=== PATIENT | male | born 1950 | race Caucasian/White ===

== ENCOUNTER 2020-05-14 19:50 | Inpatient (IN) | payer MEDICARE ==
--- NOTE | 2020-05-14 20:51 | ED ---
General Adult HPI - General Chief complaint: Altered Mental Status Stated complaint: SOB Time Seen by Provider: 05/14/20 19:50 Source: patient, family, RN/MD, EMS, RN notes reviewed Mode of arrival: EMS Limitations: altered mental status - History of Present Illness Initial comments: This is a 69-year-old male with a history of emphysema who apparently is late stage who was have an outpatient surgical procedure done at [facility] today when he is found to be hypoxemic. He was transferred to the emergency department for evaluation. He was found to be short of breath today with updraft treatments and steroids. He was noted to have minimal improvement apparently with the treatments. It pulse ox of 72. There is no procedure was to be a of the left elbow bursitis. He initially had blood work in a bicarb of 32 because the failure treatment the family did request treatment at this hospital. He was transferred to this emergency department. Prior to being discharged from [facility] a venous blood gas was done showed a pH of 7.1 and a pCO2 of 135. Patient was noted to be unresponsive with pinpoint pupils by paramedics he was given Narcan with some response. Upon arrival he was somewhat lethargic but did answer questions. Family was at bedside shortly after arrival we did discuss the possible need for intubation and they discussed with me that he was told everyone ventilator receiving every because of severe lung disease. So at this time there refusing intubation. They have agreed to BiPAP. - Related Data Allergies Allergy/AdvReac Type Severity Reaction Status Date / Time No Known Allergies Allergy Verified 05/14/20 20:11 Review of Systems ROS Statement: Those systems with pertinent positive or pertinent negative responses have been documented in the HPI. ROS Other: All systems not noted in ROS Statement are negative. Past Medical History Past Medical History: COPD History of Any Multi-Drug Resistant Organisms: Unobtainable Past Surgical History: Tonsillectomy Additional Past Surgical History / Comment(s): cataracts Past Psychological History: Unable to Obtain Smoking Status: Former smoker Past Alcohol Use History: Unable to Obtain Past Drug Use History: Unable to Obtain General Exam - General Exam Comments Initial Comments: This is a well-developed asthenic appearing male who is awake alert but lethargic Limitations: altered mental status General appearance: alert, lethargic Head exam: Present: atraumatic, normocephalic, normal inspection Eye exam: Present: normal appearance, PERRL, EOMI. Absent: scleral icterus, conjunctival injection, periorbital swelling ENT exam: Present: mucous membranes dry Neck exam: Present: normal inspection. Absent: tenderness, meningismus, lymphadenopathy Respiratory exam: Present: accessory muscle use, decreased breath sounds, other (Tachypnea). Absent: respiratory distress, wheezes, rales, rhonchi, stridor Cardiovascular Exam: Present: regular rate, normal rhythm, normal heart sounds. Absent: systolic murmur, diastolic murmur, rubs, gallop, clicks GI/Abdominal exam: Present: soft, normal bowel sounds. Absent: distended, tenderness, guarding, rebound, rigid Extremities exam: Present: normal inspection, full ROM, normal capillary refill. Absent: tenderness, pedal edema, joint swelling, calf tenderness Back exam: Present: normal inspection Neurological exam: Present: alert, oriented X3, CN II-XII intact Psychiatric exam: Present: normal affect, normal mood Skin exam: Present: warm, dry, intact, normal color. Absent: rash Course Vital Signs 05/14/20 05/14/20 19:52 20:37 Pulse Rate 96 84 Respiratory 26 H 16 Rate Blood Pressure 106/68 106/68 O2 Sat by Pulse 74 L 92 L Oximetry Medical Decision Making - Medical Decision Making I did review the imaging and report is well as the charting from [facility]. I did discuss the findings with Dr. Mcwilliams as well as coverage for Dr. shelley as not. - Lab Data Result diagrams: 05/14/20 20:41 05/14/20 20:41 Lab Results 05/14/20 05/14/20 05/14/20 Range/Units 20:41 20:41 20:41 WBC 6.5 (3.8-10.6) k/uL RBC 4.87 (4.30-5.90) m/uL Hgb 14.7 (13.0-17.5) gm/dL Hct 48.5 (39.0-53.0) % MCV 99.6 (80.0-100.0) fL MCH 30.2 (25.0-35.0) pg MCHC 30.3 L (31.0-37.0) g/dL RDW 13.8 (11.5-15.5) % Plt Count 249 (150-450) k/uL Neutrophils % 93 % Lymphocytes % 4 % Monocytes % 2 % Eosinophils % 1 % Basophils % 0 % Neutrophils # 6.0 (1.3-7.7) k/uL Lymphocytes # 0.3 L (1.0-4.8) k/uL Monocytes # 0.1 (0-1.0) k/uL Eosinophils # 0.1 (0-0.7) k/uL Basophils # 0.0 (0-0.2) k/uL Hypochromasia Marked Sodium 134 L (137-145) mmol/L Potassium 5.3 H (3.5-5.1) mmol/L Chloride 96 L (98-107) mmol/L Carbon Dioxide 32 H (22-30) mmol/L Anion Gap 6 mmol/L BUN 17 (9-20) mg/dL Creatinine 0.79 (0.66-1.25) mg/dL Est GFR (CKD-EPI)AfAm >90 (>60 ml/min/1.73 sqM) Est GFR (CKD-EPI)NonAf >90 (>60 ml/min/1.73 sqM) Glucose 143 H (74-99) mg/dL Plasma Lactic Acid [place] 1.4 (0.7-2.0) mmol/L Calcium 9.1 (8.4-10.2) mg/dL Magnesium 2.0 (1.6-2.3) mg/dL Total Bilirubin 0.4 (0.2-1.3) mg/dL AST 35 (17-59) U/L ALT 23 (4-49) U/L Alkaline Phosphatase 28 L (38-126) U/L Creatine Kinase 104 (55-170) U/L Total Protein 6.2 L (6.3-8.2) g/dL Albumin 3.5 (3.5-5.0) g/dL Critical Care Time Critical Care Time: Yes Total Critical Care Time: 3,739 Disposition Clinical Impression: Acute exacerbation of emphysema, Acute respiratory distress, Respiratory acidosis Disposition: ADMITTED IP TO THIS [facility] Condition: Serious Referrals: aJmes Kilgore MD [Primary Care Provider] - 1-2 days
[2020-05-14 21:03] LABS: Basophils % (A) 0 %; Eosinophils # (A) 0.1 k/uL (0-0.7); Eosinophils % (A) 1 %; HCT 48.5 % (39.0-53.0); HGB 14.7 gm/dL (13.0-17.5); Hypochromasia Marked; Lymphocytes # (A) 0.3 k/uL (1.0-4.8); Lymphocytes % (A) 4 %; MCH 30.2 pg (25.0-35.0); MCHC 30.3 g/dL (31.0-37.0); MCV 99.6 fL (80.0-100.0); Mean Platelet Volume 7.2; Monocytes # (A) 0.1 k/uL (0-1.0); Monocytes % (A) 2 %; Neutrophils % (A) 93 %; Platelet Count 249 k/uL (150-450); RBC 4.87 m/uL (4.30-5.90); RDW 13.8 % (11.5-15.5); WBC 6.5 k/uL (3.8-10.6)
[2020-05-14 21:12] LABS: ALT 23 U/L (4-49); AST 35 U/L (17-59); African American GFR (CKD) >90 (>60 ml/min/1.73 sqM); Albumin 3.5 g/dL (3.5-5.0); Alkaline Phosphatase 28 U/L (38-126); Anion Gap 6 mmol/L; Blood Urea Nitrogen 17 mg/dL (9-20); Calcium 9.1 mg/dL (8.4-10.2); Carbon Dioxide 32 mmol/L (22-30); Chloride 96 mmol/L (98-107); Creatine Kinase 104 U/L (55-170); Glucose 143 mg/dL (74-99); Non-African American GFR(CKD) >90 (>60 ml/min/1.73 sqM); Potassium 5.3 mmol/L (3.5-5.1); Sodium 134 mmol/L (137-145); Total Bilirubin 0.4 mg/dL (0.2-1.3); Total Protein 6.2 g/dL (6.3-8.2)
[2020-05-14] MEDS ORDERED: MAGNESIUM SULFATE-D5W PMX 1 GM in DEXTROSE/WATER 1 100ML.BAG IVPB ONE (21:26)
[2020-05-14] MEDS: SODIUM CHLORIDE 0.9% 1,000 ML IV SCH (21:47)
[2020-05-14 23:22] LABS: Glucose,Whole Blood 129 mg/dL (75-99)
[2020-05-14 23:49] LABS: Appearance,Urine Clear (Clear); Bilirubin,Urine Negative (Negative); Blood,Urine Negative (Negative); Color,Urine Yellow; Glucose,Urine (UA) Negative (Negative); Ketones,Urine Negative (Negative); Leukocyte Esterase,Urine Negative (Negative); Nitrite,Urine Negative (Negative); PH, Urine 5.5 (5.0-8.0); Protein,Urine Negative (Negative); Specific Gravity,Urine 1.024 (1.001-1.035); Urobilinogen,Urine <2.0 mg/dL (<2.0)
[2020-05-15] MEDS: IPRATROPIUM-ALBUTEROL 3 ML NEB INHALATION SCH ×7 (00:04→23:56)
[2020-05-15] MEDS: methylPREDNISolone SOD SUCCI 125 MG/2 ML VIAL IV SCH ×5 (01:00→23:31)
[2020-05-15 05:04] LABS: African American GFR (CKD) >90 (>60 ml/min/1.73 sqM); Anion Gap 5 mmol/L; Blood Urea Nitrogen 19 mg/dL (9-20); Calcium 8.9 mg/dL (8.4-10.2); Carbon Dioxide 33 mmol/L (22-30); Chloride 97 mmol/L (98-107); Glucose 148 mg/dL (74-99); Non-African American GFR(CKD) >90 (>60 ml/min/1.73 sqM); Potassium 5.4 mmol/L (3.5-5.1); Sodium 135 mmol/L (137-145)
[2020-05-15 05:11] LABS: Basophils % (A) 0 %; Eosinophils % (A) 0 %; HCT 48.1 % (39.0-53.0); HGB 14.6 gm/dL (13.0-17.5); Hypochromasia Marked; Lymphocytes # (A) 0.3 k/uL (1.0-4.8); Lymphocytes % (A) 4 %; MCH 30.1 pg (25.0-35.0); MCHC 30.3 g/dL (31.0-37.0); MCV 99.5 fL (80.0-100.0); Mean Platelet Volume 7.6; Monocytes # (A) 0.1 k/uL (0-1.0); Monocytes % (A) 2 %; Neutrophils # (A) 5.5 k/uL (1.3-7.7); Neutrophils % (A) 93 %; Platelet Count 258 k/uL (150-450); RBC 4.83 m/uL (4.30-5.90); WBC 5.9 k/uL (3.8-10.6)
[2020-05-15] MEDS: SODIUM CHLORIDE 0.9% 1,000 ML IV SCH ×2 (06:45→15:02)
--- NOTE | 2020-05-15 08:58 | XR ---
EXAMINATION TYPE: XR chest 1V portable DATE OF EXAM: 05/15/2020 CLINICAL HISTORY: Shortness of breath. COPD. TECHNIQUE: Semiupright portable view of the chest COMPARISON: Outside institution 05/14/2020 chest radiograph FINDINGS: The lungs are hyperexpanded with interstitial coarsening and flattening of the hemidiaphra gms. The cardiomediastinal silhouette is within normal limits for size. Pulmonary vasculature is norm al. There is no focal air space opacity, pleural effusion, or pneumothorax seen. The osseous structur es are intact. IMPRESSION: Emphysematous changes. No acute cardiopulmonary process.
[2020-05-15] MEDS: HEPARIN SODIUM,PORCINE 5,000 UNIT/ML 1 ML VIAL SQ SCH ×3 (10:09→23:29)
[2020-05-15 11:09] LABS: ABG Base Excess 8.5 mmol/L; ABG HCO3 36 mmol/L (21-25); ABG Oxygen Saturation 96.1 % (94-97); ABG PH 7.25 (7.35-7.45); ABG PO2 87 mmHg (83-108); ABG TCO2 38 mmol/L (19-24); Allen Test Performed? Yes
[2020-05-15 11:12] LABS: ABG PCO2 82 mmHg (35-45)
--- NOTE | 2020-05-15 12:10 | P.CNPUL ---
History of Present Illness Consult date: 05/15/20 Reason for consult: dyspnea, COPD History of present illness: 69-year-old male patient, a patient of Dr. James Kilgore, a chronic smoker used to smoke up to 3 pack of cigarettes they'll quit smoking a few months back, was at [facility] where he was admitted to undergo bilateral elbow surgery for drainage of bursitis. The patient was found to be hypoxic preoperatively and the pulse ox was in the mid 70s. At that point, the patient had a venous blood gas that showed a pH of 7.1 with a pCO2 135. A CT angiogram of the chest was done and the patient got transferred to [facility] emergency department for further care. In the ED, the patient was quite lethargic and somnolent any CO2 narcosis. Intubation was discussed with the patient's family and there was completed refuses knowing that he has advanced lung disease and/or very much concerned that he may not recover from it. Based on that, the patient was placed on a BiPAP at a pressure of 12/5 cm of water and FiO2 of 35%. Overnight the patient stated on BiPAP and earlier this morning I saw the patient, the BiPAP and put him on oxygen at 3 L per minute nasal cannula. Blood gases was done in the ICU and the patient's pH was at 7.25 with a pCO2 of 82 and pO2 of 87 and this was on 3 L of oxygen by nasal cannula. The patient is currently awake and alert. Following commands and answering questions. Mr. exertional dyspnea and he typically gets short of breath upon walking a block. He gets short of breath upon performing activities of daily today life. no worsening of his chronic cough. No significant sputum production. No chest pain. No pleurisy. No heart failure. No edema in lower extremities. No nausea. No vomiting. No aspiration. No recurrent pneumonias. Utilizes Advair Diskus and he has albuterol nebulized she was around the clock. He does not have oxygen at home. He lives with his family. No headache. No focal neurological deficits. Serum bicarbs at 33 and this indicates chronic hypercapnic respiratory failure. Review of Systems Constitutional: Reports daytime sleepiness, Reports lethargy Eyes: denies as per HPI, denies blurred vision, denies bulging eye, denies decreased vision, denies diplopia, denies discharge, denies dry eye, denies irr itation, denies itching, denies pain, denies photophobia, denies loss of peripheral vision, denies loss of vision, denies tunnel vision/blind spots Ears: deny: decreased hearing, ear discharge, earache, tinnitus Ears, nose, mouth and throat: Reports as per HPI Breasts: absent: as per HPI, gynecomastia Cardiovascular: Reports decreased exercise tolerance, Reports dyspnea on exertion Respiratory: Reports dyspnea, Reports wheezing Gastrointestinal: Reports as per HPI Genitourinary: Reports as per HPI, Reports hematuria Musculoskeletal: absent: ankle pain, ankle stiffness, ankle swelling Neurological: Reports as per HPI Psychiatric: Reports as per HPI Endocrine: Reports as per HPI, Reports fatigue Hematologic/Lymphatic: Reports as per HPI Allergic/Immunologic: Reports as per HPI 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), COPD, smoker History of Any Multi-Drug Resistant Organisms: Unobtainable Past Surgical History: Tonsillectomy Additional Past Surgical History / Comment(s): cataracts Past Anesthesia/Blood Transfusion Reactions: No Reported Reaction Past Psychological History: Unable to Obtain Smoking Status: Former smoker (quit smoking 5 months, and hen used to smoke 3 PPD ffor 50 year, 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) Past Alcohol Use History: Unable to Obtain Past Drug Use History: Unable to Obtain Medications and Allergies Allergies Allergy/AdvReac Type Severity Reaction Status Date / Time No Known Allergies Allergy Verified 05/14/20 22:09 Physical Exam Vitals: Vital Signs Temp Pulse Resp BP Pulse Ox 05/15/20 09:00 97.7 F 78 19 90/62 94 L 05/15/20 08:07 77 05/15/20 08:00 76 14 95/58 96 05/15/20 07:55 79 95 05/15/20 07:00 78 17 110/67 92 L 05/15/20 06:00 80 20 107/71 94 L 05/15/20 05:00 82 21 112/72 94 L 05/15/20 04:27 81 05/15/20 04:06 81 05/15/20 04:00 97.8 F 65 17 105/71 94 L 05/15/20 03:00 75 17 106/69 93 L 05/15/20 02:00 76 17 97/67 93 L 05/15/20 01:30 65 12 97/67 93 L 05/15/20 01:00 76 14 91/64 90 L 05/15/20 00:30 77 15 91/64 94 L 05/15/20 00:07 95 05/15/20 00:00 72 17 95 05/14/20 23:30 96.8 F L 76 13 113/70 95 05/14/20 22:26 20 96 05/14/20 21:51 97.5 F L 05/14/20 20:37 84 16 106/68 92 L 05/14/20 19:52 96 26 H 106/68 74 L Intake and Output 05/14/20 05/15/20 05/15/20 22:59 06:59 14:59 Intake Total 1040 390 Output Total 1000 197 Balance 40 193 Intake: IV 1040 390 Sodium Chloride 0.9% 1, 1040 390 000 ml @ 130 mls/hr IV . Q7H42M [facility] Rx#:[id number] Output: Urine 1000 197 Other: Voiding Method Indwelling Catheter Indwelling Catheter # Voids 0 Weight 66.8 kg 65.6 kg Gen. appearance thin and frail nonacute distress for distress currently on 3 L about 2 by nasal cannula. Not using excessive muscle breathing. BMI 20.8 Head exam was generally normal. There was no scleral icterus or corneal arcus. Mucous membranes were moist. Neck was supple and without jugular venous distension, thyromegaly, or carotid bruits. Carotids were easily palpable bilaterally. There was no adenopathy. Lungs sounds are diminished bilaterally and the patient has marked diminished breath sounds on the left is along with pronation of the exhalation phase of breathing and the patient has exhalation wheezing. Cardiac exam revealed the PMI to be normally situated and sized. The rhythm was regular and no extrasystoles were noted during several minutes of auscultation. The first and second heart sounds were normal and physiologic splitting of the second heart sound was noted. There were no murmurs, rubs, clicks, or gallops. Abdominal exam revealed normal bowel sounds. The abdomen was soft, non-tender, and without masses, organomegaly, or appreciable enlargement of the abdominal aorta. Examination of the extremities revealed easily palpable radial, femoral and pedal pulses. There was no cyanosis, clubbing or edema. Examination of the skin revealed no evidence of significant rashes, suspicious appearing nevi or other concerning lesions. Neurologically arousable and the patient is following commands and answering appropriately. Results - Laboratory Findings CBC and BMP: 05/15/20 04:38 05/15/20 04:38 Abnormal lab findings: Abnormal Labs 05/14/20 05/14/20 05/14/20 20:41 20:41 23:21 MCHC 30.3 L Lymphocytes # 0.3 L Sodium 134 L Potassium 5.3 H Chloride 96 L Carbon Dioxide 32 H Glucose 143 H POC Glucose (mg/dL) 129 H Alkaline Phosphatase 28 L Total Protein 6.2 L 05/15/20 05/15/20 04:38 04:38 MCHC 30.3 L Lymphocytes # 0.3 L Sodium 135 L Potassium 5.4 H Chloride 97 L Carbon Dioxide 33 H Glucose 148 H POC Glucose (mg/dL) Alkaline Phosphatase Total Protein - Diagnostic Findings Chest x-ray: image reviewed Assessment and Plan Plan: 1 acute COPD exacerbation 2 advanced COPD with chronic hypoxic and hypercapnic the respiratory failure. Based on his blood gases the patient obviously has a component of chronic hypercapnic respiratory failure with secondary metabolic alkalosis. He obviously is chronically hypoxic also. He denies having to use home oxygen. CT angiogram was done at [facility]. The results are not available to me. Chest x-ray is not showing any acute cardio pulmonary process. The patient was placed on BiPAP throughout the night. 3 acute on chronic hypercapnic respiratory failure currently on BiPAP overnight and the patient was switched to oxygen by nasal cannula with subsequent improvement and acid base status 4 chronic hypoxic respiratory failure 5 cachexia with a BMI of 20.8 6 previous history of melanoma resected 7 previous history of smoking Plan This patient has advanced lung disease with significant limitation of exercise capacity. The patient also came in for an acute on top of chronic hypoxic and hypercapnic respiratory failure, support with BiPAP and bronchodilators and steroids. Subsequently low blood gases are showing improvement and acid base status. Would like to obtain these results of the CT angiogram that was done at [facility]. Continue bronchodilators. Continue steroids. Alternates BiPAP along with oxygen 3 L per minute nasal cannula. Heparin subcu for DVT prophylaxis. We'll continue to follow.
[2020-05-15] MEDS ORDERED: ACETAMINOPHEN TAB 325 MG TAB PO PRN (14:53)
[2020-05-15] MEDS ORDERED: IBUPROFEN 400 MG TAB PO PRN (16:59)
--- NOTE | 2020-05-15 17:26 | P.HPIM ---
History of Present Illness H&P Date: 05/15/20 Chief Complaint: Acute hypoxic hypercapnic respiratory failure is a 69-year-old male with a past medical history of end-stage COPD, melanoma of the left eye transferred from [facility] for acute hypoxic hypercapnic respiratory failure. Patient was admitted at [facility] for bilateral bursectomy where he was found to be hypoxic as his pulse ox was showing saturations of 70-74%, so they did CT angiogram of the chest and transferred to [facility]. In the emergency department patient was lethargic, but intubation was not done as the patient's family members refused knowing that he has advanced COPD as it would be very difficult for him to get off of the ventilator. So the patient was started on BiPAP and admitted to the ICU. Patient is currently in the ICU setting saturating at 90% on 3 L of nasal cannula. Patient states that he did not have any fevers chills or rigors. He denied having any chest pain or difficulty in breathing. No cough or sputum production or change in the color of his sputum. Patient denied having an apparent pain nausea vomiting or diarrhea. No dysuria or hematuria. He states that he was in his usual health rate and he went to get bursectomy done. At the time of admission patient's oxygen saturation was at 74% on an as his cannula and immediately after the getting him on BiPAP dependent up to 92%. On reviewing his labs his white count of 5.9, hemoglobin 14.6, platelets of 258. Sodium 135, potassium 5.4, chloride 97, bicarbonate 39. BP 1 of 19 and creatinine of 0.69. Patient does state stated negative for influenza A and B. His urine analysis was negative for nitrites and leukocyte esterase. Review of Systems REVIEW OF SYSTEMS: PSYCH: No anxiety or depression NEURO:No c/o weakness of the extremties, No facial droop, No speech a bnormalities. VASCULAR: Peripheral nervous system within the normal limits no edema HEMATOLOGIC: No history of easy bleeding and bruising . No recent infections . RESPIRATORY: As per HPI IMMUNE: No infections INTEGUMENT: no rashes OPHTHALMOLOGIC: No blurry vision and no eye discharge : No dysuria or hematuria CARDIAC: No chest pain , shortness of breath , paroxysmal nocturnal dyspnea MUSCULOSKELETAL : No Aches or pains in the joints or muscles. GI: No abdominal pain, Nausea or vomiting. No constipation or diarrhea. 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) Past Alcohol Use History: Unable to Obtain Past Drug Use History: Unable to Obtain Medications and Allergies Home Medications Medication Instructions Recorded Confirmed Type Aspirin [Adult Low Dose Aspirin EC] 81 mg PO DAILY 05/15/20 05/15/20 History Fluticasone/Salmeterol [Advair 1 puff INHALATION RT-BID 05/15/20 05/15/20 History 250-50 Diskus] Ipratropium-Albuterol Nebulize 3 ml INHALATION RT-Q4H PRN 05/15/20 05/15/20 History [Duoneb 0.5 mg-3 mg/3 ml Soln] Tamsulosin [Flomax] 0.4 mg PO DAILY 05/15/20 05/15/20 History Allergies Allergy/AdvReac Type Severity Reaction Status Date / Time No Known Allergies Allergy Verified 05/15/20 12:12 Physical Exam Vitals: Vital Signs Temp Pulse Resp BP Pulse Ox 05/15/20 17:00 98 15 105/71 90 L 05/15/20 16:00 97.7 F 95 0 L 93/53 93 L 05/15/20 15:55 90 22 05/15/20 15:45 91 22 05/15/20 15:00 94 17 98/62 92 L 05/15/20 14:00 86 14 105/64 91 L 05/15/20 13:00 80 8 L 100/63 88 L 05/15/20 12:00 97.6 F 78 17 98/62 93 L 05/15/20 11:46 74 05/15/20 11:31 73 05/15/20 11:00 79 17 102/63 97 05/15/20 10:00 78 17 100/63 96 05/15/20 09:00 97.7 F 78 19 90/62 94 L 05/15/20 08:07 77 05/15/20 08:00 76 14 95/58 96 05/15/20 07:55 79 95 05/15/20 07:00 78 17 110/67 92 L 05/15/20 06:00 80 20 107/71 94 L 05/15/20 05:00 82 21 112/72 94 L 05/15/20 04:27 81 05/15/20 04:06 81 05/15/20 04:00 97.8 F 65 17 105/71 94 L 05/15/20 03:00 75 17 106/69 93 L 05/15/20 02:00 76 17 97/67 93 L 05/15/20 01:30 65 12 97/67 93 L 05/15/20 01:00 76 14 91/64 90 L 05/15/20 00:30 77 15 91/64 94 L 05/15/20 00:07 95 05/15/20 00:00 72 17 95 05/14/20 23:30 96.8 F L 76 13 113/70 95 05/14/20 22:26 20 96 05/14/20 21:51 97.5 F L 05/14/20 20:37 84 16 106/68 92 L 05/14/20 19:52 96 26 H 106/68 74 L Intake and Output 05/15/20 05/15/20 05/15/20 06:59 14:59 22:59 Intake Total 1040 590 120 Output Total 1000 542 130 Balance 40 48 -10 Intake: IV 1040 590 120 Sodium Chloride 0.9% 1, 1040 590 120 000 ml @ 40 mls/hr IV . Q24H [facility] Rx#:[id number] Output: Urine 1000 542 130 Other: Voiding Method Indwelling Catheter Indwelling Catheter Indwelling Catheter # Voids 0 Weight 65.6 kg Physical EXAM GEN. APPEARANCE: alert, in no apparent distress, cachectic. HEAD EXAM: atraumatic, normocephalic, normal inspection EYE EXAM: No pallor. No icterus. ENT EXAM: normal exam, mucous membranes moist NECK EXAM: No JVD. RESPIRATORY EXAM: Diminished breath sounds in all lung weaver. Bilateral rhonchi. CARDIOVASCULAR EXAM: S1-S2 heard. GI/ABDOMINAL EXAM: soft, normal bowel sounds. Absent: distended, tenderness, guarding, rebound, rigid EXTREMITIES EXAM: No edema. NEUROLOGICAL EXAM: alert, oriented X3, no focal neurological deficits PSYCHIATRIC EXAM: normal affect, normal mood SKIN EXAM: warm, dry, intact, normal color. Absent: rash Results CBC & Chem 7: 05/16/20 04:40 05/16/20 04:40 Labs: Abnormal Lab Results - Last 24 Hours (Table) 05/14/20 05/14/20 05/14/20 Range/Units 20:41 20:41 23:21 MCHC 30.3 L (31.0-37.0) g/dL Lymphocytes # 0.3 L (1.0-4.8) k/uL ABG pH (7.35-7.45) ABG pCO2 (35-45) mmHg ABG HCO3 (21-25) mmol/L ABG Total CO2 (19-24) mmol/L Sodium 134 L (137-145) mmol/L Potassium 5.3 H (3.5-5.1) mmol/L Chloride 96 L (98-107) mmol/L Carbon Dioxide 32 H (22-30) mmol/L Glucose 143 H (74-99) mg/dL POC Glucose (mg/dL) 129 H (75-99) mg/dL Alkaline Phosphatase 28 L (38-126) U/L Total Protein 6.2 L (6.3-8.2) g/dL 05/15/20 05/15/20 05/15/20 Range/Units 04:38 04:38 11:07 MCHC 30.3 L (31.0-37.0) g/dL Lymphocytes # 0.3 L (1.0-4.8) k/uL ABG pH 7.25 L (7.35-7.45) ABG pCO2 82 H* (35-45) mmHg ABG HCO3 36 H (21-25) mmol/L ABG Total CO2 38 H (19-24) mmol/L Sodium 135 L (137-145) mmol/L Potassium 5.4 H (3.5-5.1) mmol/L Chloride 97 L (98-107) mmol/L Carbon Dioxide 33 H (22-30) mmol/L Glucose 148 H (74-99) mg/dL POC Glucose (mg/dL) (75-99) mg/dL Alkaline Phosphatase (38-126) U/L Total Protein (6.3-8.2) g/dL Thrombosis Risk Factor Assmnt - Choose All That Apply Each Factor Represents 1 point: Abnormal pulmonary function (COPD) Each Risk Factor Represents 2 Points: Age 61-74 years Thrombosis Risk Factor Assessment Total Risk Factor Score: 3 Thrombosis Risk Factor Assessment Level: Moderate Risk Assessment and Plan Assessment: ASSESSMENT Acute hypoxic hypercapnic respiratory failure Acute COPD exacerbation Chronic hypoxemic respiratory failure Severe protein calorie malnutrition History of melanoma status post resection PLAN: Patient has been started on BiPAP and his oxygen saturations have improved. He is currently saturating at 90% on 3 L of nasal cannula. To follow up on the CT angino of the chest that was done at the [facility]. Continue with IV steroids, antibiotics and breathing treatments. Continue with the current medication regimen and further recommendations to follow depending on the progress of the patient. Overall prognosis is guarded.
[2020-05-16] MEDS: IPRATROPIUM-ALBUTEROL 3 ML NEB INHALATION SCH ×6 (04:06→23:25)
[2020-05-16 05:24] LABS: Basophils % (A) 0 %; Eosinophils % (A) 0 %; HGB 13.4 gm/dL (13.0-17.5); Hypochromasia Moderate; Lymphocytes # (A) 0.3 k/uL (1.0-4.8); Lymphocytes % (A) 3 %; MCH 29.9 pg (25.0-35.0); MCHC 30.4 g/dL (31.0-37.0); MCV 98.5 fL (80.0-100.0); Mean Platelet Volume 7.7; Monocytes # (A) 0.6 k/uL (0-1.0); Monocytes % (A) 5 %; Neutrophils # (A) 10.9 k/uL (1.3-7.7); Neutrophils % (A) 92 %; Platelet Count 257 k/uL (150-450); RBC 4.47 m/uL (4.30-5.90); RDW 13.9 % (11.5-15.5); WBC 11.9 k/uL (3.8-10.6)
[2020-05-16] MEDS: methylPREDNISolone SOD SUCCI 125 MG/2 ML VIAL IV SCH ×4 (05:27→23:52)
[2020-05-16 05:36] LABS: African American GFR (CKD) >90 (>60 ml/min/1.73 sqM); Anion Gap 2 mmol/L; Blood Urea Nitrogen 26 mg/dL (9-20); Calcium 8.9 mg/dL (8.4-10.2); Carbon Dioxide 34 mmol/L (22-30); Chloride 99 mmol/L (98-107); Glucose 174 mg/dL (74-99); Non-African American GFR(CKD) >90 (>60 ml/min/1.73 sqM); Potassium 4.8 mmol/L (3.5-5.1); Sodium 135 mmol/L (137-145)
--- NOTE | 2020-05-16 06:34 | XR ---
EXAMINATION TYPE: XR chest 1V portable DATE OF EXAM: 05/16/2020 COMPARISON: 05/15/2020 HISTORY: Shortness of breath TECHNIQUE: Single frontal view of the chest is obtained. FINDINGS: Hyperinflation suggests COPD. There is areas of bilateral consolidation and small left eff usion. Interstitium is increased. No pneumothorax. Heart size mildly prominent with atherosclerotic c hange aorta. IMPRESSION: 1. COPD with bilateral infiltrate and small left effusion correlate for superimposed CHF or pneumonia .. Findings progressed from prior exam.
[2020-05-16] MEDS: HEPARIN SODIUM,PORCINE 5,000 UNIT/ML 1 ML VIAL SQ SCH ×3 (08:36→23:50)
[2020-05-16 09:59] LABS: ABG Base Excess 11.4 mmol/L; ABG HCO3 36 mmol/L (21-25); ABG Oxygen Saturation 93.9 % (94-97); ABG PCO2 52 mmHg (35-45); ABG PH 7.44 (7.35-7.45); ABG PO2 63 mmHg (83-108); ABG TCO2 37 mmol/L (19-24); Allen Test Performed? Yes
[2020-05-16] MEDS: AZITHROMYCIN 250 MG TAB PO SCH (10:23)
--- NOTE | 2020-05-16 11:11 | P.PN ---
Subjective Progress Note Date: 05/16/20 69-year-old male patient, a patient of Dr. James Kilgore, a chronic smoker used to smoke up to 3 pack of cigarettes they'll quit smoking a few months back, was at [facility] where he was admitted to undergo bilateral elbow surgery for drainage of bursitis. The patient was found to be hypoxic preoperatively and the pulse ox was in the mid 70s. At that point, the patient had a venous blood gas that showed a pH of 7.1 with a pCO2 135. A CT angiogram of the chest was done and the patient got transferred to [facility] emergency department for further care. In the ED, the patient was quite lethargic and somnolent any CO2 narcosis. Intubation was discussed with the patient's family and there was completed refuses knowing that he has advanced lung disease and/or very much concerned that he may not recover from it. Based on that, the patient was placed on a BiPAP at a pressure of 12/5 cm of water and FiO2 of 35%. Overnight the patient stated on BiPAP and earlier this morning I saw the patient, the BiPAP and put him on oxygen at 3 L per minute nasal cannula. Blood gases was done in the ICU and the patient's pH was at 7.25 with a pCO2 of 82 and pO2 of 87 and this was on 3 L of oxygen by nasal cannula. The patient is currently awake and alert. Following commands and answering questions. Mr. exertional dyspnea and he typically gets short of breath upon w alking a block. He gets short of breath upon performing activities of daily today life. no worsening of his chronic cough. No significant sputum production. No chest pain. No pleurisy. No heart failure. No edema in lower extremities. No nausea. No vomiting. No aspiration. No recurrent pneumonias. Utilizes Advair Diskus and he has albuterol nebulized she was around the clock. He does not have oxygen at home. He lives with his family. No headache. No focal neurological deficits. Serum bicarbs at 33 and this indicates chronic hypercapnic respiratory failure. On 05/16/2020 the patient is being seen for a follow-up. Doing extremely well. Less short of breath compared to yesterday. Repeat blood gases from today showed improvement and acid base status with a pH of 7.44 with pCO2 of 52 and pO2 of 63. His was done on 3 L about 2 by nasal cannula. The patient will need home oxygen. The chest x-ray showing some infiltrates of the lung bases. The patient will need some empiric antibiotics and going to start the patient on Zithromax to 50 mg by mouth daily. Home oxygen arrangements are being done. No altered mentation. Limited coffee no significant sputum production. No chest pain. He can be leaving the ICU today. Objective - Vital Signs Vital signs: Vital Signs Temp 97.9 F 05/16/20 08:00 Pulse 81 05/16/20 10:00 Resp 19 05/16/20 10:00 BP 117/73 05/16/20 10:00 Pulse Ox 92 L 05/16/20 10:00 Intake & Output 05/15/20 05/16/20 05/16/20 18:59 06:59 18:59 Intake Total 750 480 380 Output Total 712 660 90 Balance 38 -180 290 Weight 66.2 kg Intake: IV 750 480 130 Sodium Chloride 0.9% 1, 750 480 130 000 ml @ 10 mls/hr IV . Q24H [facility] Rx#:[id number] Oral 250 Output: Urine 712 660 90 Other: Voiding Method Indwelling Catheter Indwelling Catheter Urinal - Exam Gen. appearance thin and frail nonacute distress for distress currently on 3 L by nasal cannula. Not using excessive muscle breathing. BMI 20.8 Head exam was generally normal. There was no scleral icterus or corneal arcus. Mucous membranes were moist. Neck was supple and without jugular venous distension, thyromegaly, or carotid bruits. Carotids were easily palpable bilaterally. There was no adenopathy. Lungs sounds are diminished bilaterally and the patient has marked diminished breath sounds on the left is along with pronation of the exhalation phase of breathing and the patient has exhalation wheezing. Cardiac exam revealed the PMI to be normally situated and sized. The rhythm was regular and no extrasystoles were noted during several minutes of auscultation. The first and second heart sounds were normal and physiologic splitting of the second heart sound was noted. There were no murmurs, rubs, clicks, or gallops. Abdominal exam revealed normal bowel sounds. The abdomen was soft, non-tender, and without masses, organomegaly, or appreciable enlargement of the abdominal aorta. Examination of the extremities revealed easily palpable radial, femoral and pedal pulses. There was no cyanosis, clubbing or edema. Examination of the skin revealed no evidence of significant rashes, suspicious appearing nevi or other concerning lesions. Neurologically arousable and the patient is following commands and answering appropriately. - Labs CBC & Chem 7: 05/16/20 04:40 05/16/20 04:40 Labs: Abnormal Lab Results - Last 24 Hours (Table) 05/15/20 05/16/20 05/16/20 Range/Units 11:07 04:40 04:40 WBC 11.9 H (3.8-10.6) k/uL MCHC 30.4 L (31.0-37.0) g/dL Neutrophils # 10.9 H (1.3-7.7) k/uL Lymphocytes # 0.3 L (1.0-4.8) k/uL ABG pH 7.25 L (7.35-7.45) ABG pCO2 82 H* (35-45) mmHg ABG pO2 (83-108) mmHg ABG HCO3 36 H (21-25) mmol/L ABG Total CO2 38 H (19-24) mmol/L ABG O2 Saturation (94-97) % Sodium 135 L (137-145) mmol/L Carbon Dioxide 34 H (22-30) mmol/L BUN 26 H (9-20) mg/dL Glucose 174 H (74-99) mg/dL 05/16/20 Range/Units 09:57 WBC (3.8-10.6) k/uL MCHC (31.0-37.0) g/dL Neutrophils # (1.3-7.7) k/uL Lymphocytes # (1.0-4.8) k/uL ABG pH (7.35-7.45) ABG pCO2 52 H (35-45) mmHg ABG pO2 63 L (83-108) mmHg ABG HCO3 36 H (21-25) mmol/L ABG Total CO2 37 H (19-24) mmol/L ABG O2 Saturation 93.9 L (94-97) % Sodium (137-145) mmol/L Carbon Dioxide (22-30) mmol/L BUN (9-20) mg/dL Glucose (74-99) mg/dL Assessment and Plan Plan: 1 acute COPD exacerbation, improving 2 advanced COPD with chronic hypoxic and hypercapnic the respiratory failure. Based on his blood gases the patient obviously has a component of chronic hypercapnic respiratory failure with secondary metabolic alkalosis. He obviously is chronically hypoxic also. He denies having to use home oxygen. CT angiogram was done at [facility]. No evidence of any pulmonary embolism. No evidence of pneumonia. Will need home oxygen. 3 acute on chronic hypercapnic respiratory failure, improving and the patient has not utilized BiPAP currently on 2 L about 2 by nasal cannula and subsequent improvement and acid base status. 4 chronic hypoxic respiratory failure 5 cachexia with a BMI of 20.8 6 previous history of melanoma resected 7 previous history of smoking Plan Continue bronchodilators and steroids Arrange home oxygen Zithromax to 50 mg by mouth daily was added IV fluids to KVO Increased level of activity as tolerated Transfer out of the ICU
[2020-05-16] MEDS: SODIUM CHLORIDE 0.9% 1,000 ML IV SCH (15:54)
--- NOTE | 2020-05-16 16:08 | P.PN ---
Subjective Progress Note Date: 05/16/20 is a 69-year-old male with a past medical history of end-stage COPD, melanoma of the left eye transferred from [facility] for acute hypoxic hypercapnic respiratory failure. Patient was admitted at [facility] for bilateral bursectomy where he was found to be hypoxic as his pulse ox was showing saturations of 70-74%, so they did CT angiogram of the chest and transferred to [facility]. In the emergency department patient was lethargic, but intubation was not done as the patient's family members refused knowing that he has advanced COPD as it would be very difficult for him to get off of the ventilator. So the patient was started on BiPAP and admitted to the ICU. on 05/15/20- Patient is currently in the ICU setting saturating at 90% on 3 L of nasal cannula. Patient states that he did not have any fevers chills or rigors. He denied having any chest pain or difficulty in breathing. No cough or sputum production or change in the color of his sputum. Patient denied having an apparent pain nausea vomiting or diarrhea. No dysuria or hematuria. He states that he was in his usual health rate and he went to get bursectomy done. At the time of admission patient's oxygen saturation was at 74% on an as his cannula and immediately after the getting him on BiPAP dependent up to 92%. On reviewing his labs his white count of 5.9, hemoglobin 14.6, platelets of 258. Sodium 135, potassium 5.4, chloride 97, bicarbonate 39. BP 1 of 19 and creatinine of 0.69. Patient does state stated negative for influenza A and B. His urine analysis was negative for nitrites and leukocyte esterase. On 05/16/2020- patient is currently in the ICU. As per nursing staff report patient did not require BiPAP in the past 24 hours. He has been saturating around 90% on 3 L of oxygen. Patient states that his difficulty in breathing is much better compared to couple of days back. Patient denies having any chest pain or palpitations. No abdominal pain nausea vomiting or diarrhea. No dysuria or hematuria. He was asking me when he could go home. Patient had ABGs done this morning showing pH of 7.44, [id number] 52, pO2 of 63 on 3 L of oxygen via nasal cannula. On reviewing his labs white count of 11.9 hemoglobin of 13.4, platelets 257. Sodium 135, potassium 4.8, chloride 99, bicarb of 34. Creatinine of 0.73. Active Medications Acetaminophen (Acetaminophen Tab 325 Mg Tab) 650 mg PO Q6HR PRN PRN Reason: Fever and/ or Pain Last Admin: 05/15/20 15:00 Dose: 650 mg Documented by: Albuterol/Ipratropium (Ipratropium-Albuterol 3 Ml Neb) 3 ml INHALATION RT-Q4H [facility] Last Admin: 05/16/20 15:27 Dose: 3 ml Documented by: Azithromycin (Azithromycin 250 Mg Tab) 250 mg PO DAILY [facility] Last Admin: 05/16/20 10:23 Dose: 250 mg Documented by: Heparin Sodium (Porcine) (Heparin Sodium,Porcine 5,000 Unit/Ml 1 Ml Vial) 5,000 unit SQ Q8HR [facility] Last Admin: 05/16/20 15:55 Dose: 5,000 unit Documented by: Sodium Chloride (Saline 0.9%) 1,000 mls @ 10 mls/hr IV .Q24H [facility] Last Admin: 05/16/20 15:54 Dose: 10 mls/hr Documented by: Ibuprofen (Ibuprofen 400 Mg Tab) 400 mg PO Q6HR PRN PRN Reason: Pain Last Admin: 05/15/20 17:18 Dose: 400 mg Documented by: Methylprednisolone Sodium Succinate (Methylprednisolone Sod Succi 125 Mg/2 Ml Vial) 60 mg IV Q6HR [facility] Last Admin: 05/16/20 11:49 Dose: 60 mg Documented by: Objective - Vital Signs Vital signs: Vital Signs Temp 97.9 F 05/16/20 08:00 Pulse 92 05/16/20 15:37 Resp 18 05/16/20 15:37 BP 140/86 05/16/20 15:00 Pulse Ox 95 05/16/20 15:27 Intake & Output 05/15/20 05/16/20 05/16/20 18:59 06:59 18:59 Intake Total 750 480 430 Output Total 712 660 215 Balance 38 -180 215 Weight 66.2 kg Intake: IV 750 480 180 Sodium Chloride 0.9% 1, 750 480 180 000 ml @ 10 mls/hr IV . Q24H [facility] Rx#:[id number] Oral 250 Output: Urine 712 660 215 Other: Voiding Method Indwelling Catheter Indwelling Catheter Urinal # Bowel Movements 1 - Exam PHYSICAL EXAM GEN. APPEARANCE: alert, in no apparent distress, cachectic. HEENT: No pallor, no icterus, no JVD RESPIRATORY EXAM: Diminished breath sounds in all lung weaver. CARDIOVASCULAR EXAM: S1-S2 heard. GI/ABDOMINAL EXAM: soft, normal bowel sounds. Absent: distended, tenderness, guarding, rebound, rigid EXTREMITIES EXAM: No edema. NEUROLOGICAL EXAM: alert, oriented X3, no focal neurological deficits PSYCHIATRIC EXAM: normal affect, normal mood SKIN EXAM: warm, dry, intact, normal color. Absent: rash - Labs CBC & Chem 7: 05/16/20 04:40 05/16/20 04:40 Labs: Abnormal Lab Results - Last 24 Hours (Table) 05/16/20 05/16/20 05/16/20 Range/Units 04:40 04:40 09:57 WBC 11.9 H (3.8-10.6) k/uL MCHC 30.4 L (31.0-37.0) g/dL Neutrophils # 10.9 H (1.3-7.7) k/uL Lymphocytes # 0.3 L (1.0-4.8) k/uL ABG pCO2 52 H (35-45) mmHg ABG pO2 63 L (83-108) mmHg ABG HCO3 36 H (21-25) mmol/L ABG Total CO2 37 H (19-24) mmol/L ABG O2 Saturation 93.9 L (94-97) % Sodium 135 L (137-145) mmol/L Carbon Dioxide 34 H (22-30) mmol/L BUN 26 H (9-20) mg/dL Glucose 174 H (74-99) mg/dL Assessment and Plan Assessment: ASSESSMENT Acute hypoxic hypercapnic respiratory failure Acute COPD exacerbation Chronic hypoxemic respiratory failure Severe protein calorie malnutrition History of melanoma status post resection PLAN: Patient has been started on BiPAP and his oxygen saturations have improved. He is currently saturating at 90% on 3 L of nasal cannula. CT angino of the chest that was done at the [facility], no evidence of PE or pneumonia. Continue with IV steroids, antibiotics and breathing treatments. Continue with the current medication regimen and further recommendations to follow depending on the progress of the patient. Patient has been restarted on his home medications. Overall prognosis is guarded. 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 Anticipate discharge in the next 24 hours.
[2020-05-16] MEDS: TAMSULOSIN 0.4 MG CAP.ER.24H PO SCH (17:05)
[2020-05-16] MEDS: ASPIRIN 81 MG PO SCH (17:05)
[2020-05-16] MEDS: SYMBICORT 80-4.5 MCG INHALER INHALATION SCH (18:51)
[2020-05-17] MEDS: IPRATROPIUM-ALBUTEROL 3 ML NEB INHALATION SCH ×3 (03:29→11:19)
[2020-05-17 05:08] LABS: African American GFR (CKD) >90 (>60 ml/min/1.73 sqM); Anion Gap 0 mmol/L; Blood Urea Nitrogen 22 mg/dL (9-20); Calcium 8.9 mg/dL (8.4-10.2); Carbon Dioxide 39 mmol/L (22-30); Chloride 98 mmol/L (98-107); Glucose 134 mg/dL (74-99); Non-African American GFR(CKD) >90 (>60 ml/min/1.73 sqM); Potassium 4.3 mmol/L (3.5-5.1); Sodium 137 mmol/L (137-145)
[2020-05-17] MEDS: methylPREDNISolone SOD SUCCI 125 MG/2 ML VIAL IV SCH ×2 (05:43→12:49)
[2020-05-17 07:00] LABS: Basophils % (A) 0 %; Eosinophils % (A) 0 %; HCT 44.2 % (39.0-53.0); HGB 13.2 gm/dL (13.0-17.5); Hypochromasia Slight; Lymphocytes # (A) 0.2 k/uL (1.0-4.8); Lymphocytes % (A) 2 %; MCH 29.2 pg (25.0-35.0); MCHC 29.8 g/dL (31.0-37.0); Mean Platelet Volume 7.7; Monocytes # (A) 0.4 k/uL (0-1.0); Monocytes % (A) 4 %; Neutrophils # (A) 9.4 k/uL (1.3-7.7); Neutrophils % (A) 93 %; Platelet Count 261 k/uL (150-450); RBC 4.51 m/uL (4.30-5.90); RDW 14.1 % (11.5-15.5); WBC 10.1 k/uL (3.8-10.6)
[2020-05-17] MEDS: SYMBICORT 80-4.5 MCG INHALER INHALATION SCH (07:44)
[2020-05-17 09:24] VITALS: RESP 24
[2020-05-17] MEDS: HEPARIN SODIUM,PORCINE 5,000 UNIT/ML 1 ML VIAL SQ SCH (09:31)
[2020-05-17] MEDS: AZITHROMYCIN 250 MG TAB PO SCH (09:33)
[2020-05-17] MEDS: TAMSULOSIN 0.4 MG CAP.ER.24H PO SCH (09:33)
[2020-05-17] MEDS: ASPIRIN 81 MG PO SCH (09:33)
--- NOTE | 2020-05-17 10:49 | P.PN ---
Subjective Progress Note Date: 05/17/20 69-year-old male patient, a patient of Dr. James Kilgore, a chronic smoker used to smoke up to 3 pack of cigarettes they'll quit smoking a few months back, was at [facility] where he was admitted to undergo bilateral elbow surgery for drainage of bursitis. The patient was found to be hypoxic preoperatively and the pulse ox was in the mid 70s. At that point, the patient had a venous blood gas that showed a pH of 7.1 with a pCO2 135. A CT angiogram of the chest was done and the patient got transferred to [facility] emergency department for further care. In the ED, the patient was quite lethargic and somnolent any CO2 narcosis. Intubation was discussed with the patient's family and there was completed refuses knowing that he has advanced lung disease and/or very much concerned that he may not recover from it. Based on that, the patient was placed on a BiPAP at a pressure of 12/5 cm of water and FiO2 of 35%. Overnight the patient stated on BiPAP and earlier this morning I saw the patient, the BiPAP and put him on oxygen at 3 L per minute nasal cannula. Blood gases was done in the ICU and the patient's pH was at 7.25 with a pCO2 of 82 and pO2 of 87 and this was on 3 L of oxygen by nasal cannula. The patient is currently awake and alert. Following commands and answering questions. Mr. exertional dyspnea and he typically gets short of breath upon w alking a block. He gets short of breath upon performing activities of daily today life. no worsening of his chronic cough. No significant sputum production. No chest pain. No pleurisy. No heart failure. No edema in lower extremities. No nausea. No vomiting. No aspiration. No recurrent pneumonias. Utilizes Advair Diskus and he has albuterol nebulized she was around the clock. He does not have oxygen at home. He lives with his family. No headache. No focal neurological deficits. Serum bicarbs at 33 and this indicates chronic hypercapnic respiratory failure. On 05/16/2020 the patient is being seen for a follow-up. Doing extremely well. Less short of breath compared to yesterday. Repeat blood gases from today showed improvement and acid base status with a pH of 7.44 with pCO2 of 52 and pO2 of 63. His was done on 3 L about 2 by nasal cannula. The patient will need home oxygen. The chest x-ray showing some infiltrates of the lung bases. The patient will need some empiric antibiotics and going to start the patient on Zithromax to 50 mg by mouth daily. Home oxygen arrangements are being done. No altered mentation. Limited coffee no significant sputum production. No chest pain. He can be leaving the ICU today. On 05/17/2020 on seeing the patient for a follow-up. The patient is calm and comfortable. No altered mentation. Chest x-ray showing some limited infiltration of the lung bases bilaterally. The patient was started on Zithromax. No fever or chills. No significant sputum production. No pleurisy. Home oxygen has been arranged for this patient if no other complaints otherwise for now. No nausea. No vomiting. No diarrhea. No abdominal pain. Seems that he is ready for discharge. Objective - Vital Signs Vital signs: Vital Signs Temp 97.9 F 05/17/20 09:20 Pulse 60 05/17/20 09:20 Resp 24 05/17/20 09:20 BP 123/83 05/17/20 09:20 Pulse Ox 91 L 05/17/20 09:20 Intake & Output 05/16/20 05/17/20 05/17/20 18:59 06:59 18:59 Intake Total 460 80 280 Output Total 340 450 250 Balance 120 -370 30 Weight 64.3 kg Intake: IV 210 80 80 Sodium Chloride 0.9% 1, 210 80 80 000 ml @ 10 mls/hr IV . Q24H [facility] Rx#:[id number] Oral 250 200 Output: Urine 340 450 250 Other: Voiding Method Urinal Urinal Urinal # Voids 1 # Bowel Movements 1 - Exam Gen. appearance thin and frail nonacute distress for distress currently on 3 L by nasal cannula. Not using excessive muscle breathing. BMI 20.8 Head exam was generally normal. There was no scleral icterus or corneal arcus. Mucous membranes were moist. Neck was supple and without jugular venous distension, thyromegaly, or carotid bruits. Carotids were easily palpable bilaterally. There was no adenopathy. Lungs sounds are diminished bilaterally and the patient has marked diminished breath sounds on the left is along with pronation of the exhalation phase of breathing and the patient has exhalation wheezing. Cardiac exam revealed the PMI to be normally situated and sized. The rhythm was regular and no extrasystoles were noted during several minutes of auscultation. The first and second heart sounds were normal and physiologic splitting of the second heart sound was noted. There were no murmurs, rubs, clicks, or gallops. Abdominal exam revealed normal bowel sounds. The abdomen was soft, non-tender, and without masses, organomegaly, or appreciable enlargement of the abdominal aorta. Examination of the extremities revealed easily palpable radial, femoral and pedal pulses. There was no cyanosis, clubbing or edema. Examination of the skin revealed no evidence of significant rashes, suspicious appearing nevi or other concerning lesions. Neurologically arousable and the patient is following commands and answering appropriately. - Labs CBC & Chem 7: 05/17/20 04:20 05/17/20 04:20 Labs: Abnormal Lab Results - Last 24 Hours (Table) 05/17/20 05/17/20 Range/Units 04:20 04:20 MCHC 29.8 L (31.0-37.0) g/dL Neutrophils # 9.4 H (1.3-7.7) k/uL Lymphocytes # 0.2 L (1.0-4.8) k/uL Carbon Dioxide 39 H (22-30) mmol/L BUN 22 H (9-20) mg/dL Creatinine 0.62 L (0.66-1.25) mg/dL Glucose 134 H (74-99) mg/dL Assessment and Plan Plan: 1 acute COPD exacerbation, improving 2 advanced COPD with chronic hypoxic and hypercapnic the respiratory failure. Based on his blood gases the patient obviously has a component of chronic hypercapnic respiratory failure with secondary metabolic alkalosis. He obviously is chronically hypoxic also. He denies having to use home oxygen. CT angiogram was done at [facility]. No evidence of any pulmonary embolism. No evidence of pneumonia. Will need home oxygen. 3 acute on chronic hypercapnic respiratory failure, improving and the patient has not utilized BiPAP currently on 2 L about 2 by nasal cannula and subsequent improvement and acid base status. 4 chronic hypoxic respiratory failure 5 cachexia with a BMI of 20.8 6 previous history of melanoma resected 7 previous history of smoking Plan Clinically stable. The patient can be discharged home on a prednisone burst tap er in addition to a five-day course of Zithromax 500 mg by mouth daily for the next 5 days. Follow-up in the office. He has a home nebulizer. He also has Advair Diskus. Outpatient PFT. Outpatient follow-up.
--- NOTE | 2020-05-17 11:28 | XR ---
EXAMINATION TYPE: XR chest 1V portable DATE OF EXAM: 05/17/2020 CLINICAL HISTORY: COPD TECHNIQUE: Portable upright view of the chest COMPARISON: 05/16/2020 FINDINGS: The lungs are hyperinflated with interstitial coarsening. Mildly improved aeration of the left lung base. Patchy interstitial opacity persists at the right lung base. Persistent small left pl eural effusion. New small right pleural effusion. The cardiomediastinal silhouette is within normal l imits for size. No pneumothorax seen. IMPRESSION: 1. Mildly improved aeration of the left lung base versus 05/16/2020. 2. Redemonstrated small left and new small right pleural effusion.
[2020-05-17 14:20] VITALS: BP 121/79; PULSE 86; TEMP 98
--- NOTE | 2020-05-17 14:49 | P.DS ---
Providers Date of admission: 05/14/20 21:26 Expected date of discharge: 05/17/20 Attending physician: Kajal Zarate Consults: 05/14/20 22:53 Consult Physician Stat Consulting Provider: Charlene Mcwilliams Consult Reason/Comments: Bipap patient Do you want consulting provider notified?: Already Contacted Primary care physician: James Cortez [facility] Course: HPI - is a 69-year-old male with a past medical history of end- stage COPD, melanoma of the left eye transferred from [facility] for acute hypoxic hypercapnic respiratory failure. Patient was admitted at [facility] for bilateral bursectomy where he was found to be hypoxic as his pulse ox was showing saturations of 70-74%, so they did CT angiogram of the chest and transferred to [facility]. In the emergency department patient was lethargic, but intubation was not done as the patient's family members refused knowing that he has advanced COPD as it would be very difficult for him to get off of the ventilator. So the patient was started on BiPAP and admitted to the ICU. Patient is currently in the ICU setting saturating at 90% on 3 L of nasal cannula. Patient states that he did not have any fevers chills or rigors. He denied having any chest pain or difficulty in breathing. No cough or sputum production or change in the color of his sputum. Patient denied having an apparent pain nausea vomiting or diarrhea. No dysuria or hematuria. He states that he was in his usual health rate and he went to get bursectomy done. At the time of admission patient's oxygen saturation was at 74% on an as his cannula and immediately after the getting him on BiPAP dependent up to 92%. On reviewing his labs his white count of 5.9, hemoglobin 14.6, platelets of 258. Sodium 135, potassium 5.4, chloride 97, bicarbonate 39. BP 1 of 19 and creatinine of 0.69. Patient does state stated negative for influenza A and B. His urine analysis was negative for nitrites and leukocyte esterase. Hospital course - patient responded to BiPAP therapy and eventually was saturating above 90% on 3 L of oxygen via nasal cannula. The chest x-ray was showing some infiltrates of the lung bases. He is empirically started on antibiotics in the form of Zithromax and also given IV Solu-Medrol and he responded. Patient did not require BiPAP therapy for the past 2 days. His home oxygen was arranged and he is being discharged home on 3 L of oxygen to be continued 24 x 7. Patient is advised to follow-up with his primary care physician in 2-3 days. And also with pulmonary in 1 week. PHYSICAL EXAM GEN. APPEARANCE: alert, in no apparent distress, cachectic. HEENT: No pallor, no icterus, no JVD RESPIRATORY EXAM: Diminished breath sounds in all lung weaver. CARDIOVASCULAR EXAM: S1-2 heard. GI/ABDOMINAL EXAM: soft, normal bowel sounds. Absent: distended, tenderness, guarding, rebound, rigid EXTREMITIES EXAM: No edema. NEUROLOGICAL EXAM: alert, oriented X3, no focal neurological deficits PSYCHIATRIC EXAM: normal affect, normal mood SKIN EXAM: warm, dry, intact, normal color. Absent: rash DISCHARGE DIAGNOSIS Acute hypoxic hypercapnic respiratory failure Acute COPD exacerbation Chronic hypoxemic respiratory failure Severe protein calorie malnutrition History of melanoma status post resection Follow-up: Patient is being discharged home on home oxygen therapy 3 L to be used 24 x 7. Patient advised to follow with pulmonary and PCP in 1 week. Patient is being discharged home in fair condition. Counselled excessively on smoking cessation. More than 35 minutes spent towards the discharge of the patient. Patient Condition at Discharge: Fair Plan - Discharge Summary New Discharge Prescriptions: New predniSONE 0 mg PO DIRECTED 16 Days #40 tab Azithromycin [Zithromax] 500 mg PO DAILY 3 Days #5 tab Continue Tamsulosin [Flomax] 0.4 mg PO DAILY Fluticasone/Salmeterol [Advair 250-50 Diskus] 1 puff INHALATION RT-BID Aspirin [Adult Low Dose Aspirin EC] 81 mg PO DAILY Ipratropium-Albuterol Nebulize [Duoneb 0.5 mg-3 mg/3 ml Soln] 3 ml INHALATION RT-Q4H PRN PRN Reason: Shortness Of Breath Discharge Medication List Aspirin [Adult Low Dose Aspirin EC] 81 mg PO DAILY 05/15/20 [History] Fluticasone/Salmeterol [Advair 250-50 Diskus] 1 puff INHALATION RT-BID 05/15/20 [History] Ipratropium-Albuterol Nebulize [Duoneb 0.5 mg-3 mg/3 ml Soln] 3 ml INHALATION RT-Q4H PRN 05/15/20 [History] Tamsulosin [Flomax] 0.4 mg PO DAILY 05/15/20 [History] Azithromycin [Zithromax] 500 mg PO DAILY 3 Days #5 tab 05/17/20 [Rx] predniSONE 0 mg PO DIRECTED 16 Days #40 tab 05/17/20 [Rx] Follow up Appointment(s)/Referral(s): James Kilgore MD [Primary Care Provider] - 1-2 days Charlene Mcwilliams MD [STAFF PHYSICIAN] - 1 Week Discharge Disposition: HOME WITH HOME HEALTH SERVICES
--- NOTE | 2020-05-19 10:14 | CDI ---
Documentation Clarification Form Date: 05/19/20 From: Danika Griffiths Phone: If you have a question about this query, please contact Naomie Garza, [employer] at [phone] between 8am and 5pm. Admit Date: 05/14/20 Discharge Date: 05/17/20 Patient Name: TAMIKO GARCIA Visit Number: [id number] ATTENTION: The Clinical Documentation Specialists (CDI) and [facility] Coding Staff appreciate your assistance in clarifying documentation. Please respond to the clarification below the line at the bottom and electronically sign. The CDI & [facility] Coding staff will review the response and follow-up if needed. Please note: Queries are made part of the Legal Health Record. If you have any questions, please contact the author of this message via ITS. Dear Dr. Zully Washington, Altered Mental Status was documented in the ED note. History/Risk Factors: acute on chronic hypoxic & hypercapnia respiratory failure,severe PCM w BMI 20.3, cachexia, emphysema, bursitis bilateral elbows Clinical Indicators: Per ED note patient was noted to be unresponsive with pinpoint pupils by paramedics, he was given Narcan with some response. Upon arrival he was somewhat lethargic but did answer questions. Labs: Na-134, Potassium-5.3, Chloride-96, CO2-32, pH-7.25, pCO2-82, HCO3-36 X Ray: none CT: none Treatment: BIPAP In your professional opinion, please clarify the etiology of the Altered Mental Status, if known. Delirium (specify cause): Dementia (if know, specify Type and if with/without Behavioral Disturbance) Encephalopathy (specify Type and Underlying Medical Illness) Other condition (please specify) Unable to determine Delirium due to acute hypoxic respiratory failure MTDD
== END 2020-05-17 15:09 | disposition home or self-care (01) | DRG 189 ==
LOC: EC 19:50 → 2SICU 21:26
PROVIDERS: ADMIT Internal Medicine; ATTEND Internal Medicine
PROC: 5A09457 Assistance with Respiratory Ventilation, 24-96 Consecutive Hours, Continuous Positive Airway Pressure (ICD-10-PCS; principal; 2020-05-14)
DX: J96.21 Acute and chronic respiratory failure with hypoxia (principal); E43 Unspecified severe protein-calorie malnutrition; R64 Cachexia; E87.2 Acidosis; F05 Delirium due to known physiological condition; J43.9 Emphysema, unspecified; J96.22 Acute and chronic respiratory failure with hypercapnia; Z68.20 Body mass index [BMI] 20.0-20.9, adult; Z20.828 Contact with and (suspected) exposure to other viral communicable diseases; M70.32 Other bursitis of elbow, left elbow; M70.31 Other bursitis of elbow, right elbow; Z79.82 Long term (current) use of aspirin; Z79.51 Long term (current) use of inhaled steroids; Z79.899 Other long term (current) drug therapy; Z87.891 Personal history of nicotine dependence; Z85.820 Personal history of malignant melanoma of skin; Z90.89 Acquired absence of other organs; Z98.42 Cataract extraction status, left eye; Z98.41 Cataract extraction status, right eye; Z98.890 Other specified postprocedural states
CPT/HCPCS: 36415; 36600; 71045; 80048; 80053; 81003; 82550; 82805; 83605; 83735; 83880; 84484; 85025; 87502; 94640; 94660; 96365; 99291

== ENCOUNTER 2021-08-06 06:55 | Inpatient (IN) | payer MEDICARE, SELFPAY ==
[2021-08-06] MEDS ORDERED: SODIUM CHLORIDE 0.9% 500 ML 500 ML IV STA (07:50)
[2021-08-06] MEDS ORDERED: ALBUTEROL NEBULIZED 2.5 MG/3 ML INHALATION STA (07:50)
[2021-08-06] MEDS ORDERED: methylPREDNISolone SOD SUCCI 125 MG/2 ML VIAL IV STA (07:50)
[2021-08-06] MEDS ORDERED: IPRATROPIUM 0.5 MG/2.5 ML NEBU INHALATION STA (07:50)
[2021-08-06] MEDS ORDERED: cefTRIAXone IN SWFI 1,000 MG/10 ML SYRINGE IVP STA (07:51)
--- NOTE | 2021-08-06 07:55 | ED ---
General Adult HPI - General Chief complaint: Shortness of Breath Stated complaint: SOB Time Seen by Provider: 08/06/21 07:00 Source: patient, EMS, RN notes reviewed, old records reviewed Mode of arrival: EMS Limitations: no limitations - History of Present Illness Initial comments: This is a 70-year-old male who presents emergency Department with a past medical history significant for COPD and is oxygen dependent on 3 L patient continues to smoke. Patient states last night he started having difficulty breathing he got considerably worse throughout the evening. Patient denies any fevers states he did have a little bit of a cough but was unable to bring up any sputum. Patient states he did get the COVID vaccine. Patient denies chest pain or palpitations. Patient denies abdominal pain. Patient denies any lightheadedness dizziness. Patient swelling to legs or calf tenderness. Patient denies any nausea vomiting diarrhea. - Related Data Home Medications Medication Instructions Recorded Confirmed Aspirin [Adult Low Dose Aspirin EC] 81 mg PO DAILY 05/15/20 05/15/20 Fluticasone/Salmeterol [Advair 1 puff INHALATION RT-BID 05/15/20 05/15/20 250-50 Diskus] Ipratropium-Albuterol Nebulize 3 ml INHALATION RT-Q4H PRN 05/15/20 05/15/20 [Duoneb 0.5 mg-3 mg/3 ml Soln] Tamsulosin [Flomax] 0.4 mg PO DAILY 05/15/20 05/15/20 Previous Rx's Medication Instructions Recorded Azithromycin [Zithromax] 500 mg PO DAILY 3 Days #5 tab 05/17/20 predniSONE 0 mg PO DIRECTED 16 Days #40 tab 05/17/20 Allergies Allergy/AdvReac Type Severity Reaction Status Date / Time No Known Allergies Allergy Verified 08/06/21 07:37 Review of Systems ROS Statement: Those systems with pertinent positive or pertinent negative responses have been documented in the HPI. ROS Other: All systems not noted in ROS Statement are negative. 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), COPD, smoker History of Any Multi-Drug Resistant Organisms: None Reported Past Surgical History: Tonsillectomy Additional Past Surgical History / Comment(s): cataracts Past Anesthesia/Blood Transfusion Reactions: No Reported Reaction Past Psychological History: No Psychological Hx Reported Smoking Status: Current every day smoker, Former smoker Past Alcohol Use History: None Reported Past Drug Use History: None Reported General Exam - General Exam Comments Initial Comments: GENERAL: Patient is well-developed and well-nourished. Patient is nontoxic and well- hydrated and is in mild distress. ENT: Neck is soft and supple. No significant lymphadenopathy is noted. Oropharynx is clear. Moist mucous membranes. Neck has full range of motion without el iciting any pain. EYES: The sclera were anicteric and conjunctiva were pink and moist. Extraocular movements were intact and pupils were equal round and reactive to light. Eyelids were unremarkable. PULMONARY: Diminished breath sounds throughout and slight expiratory wheezing CARDIOVASCULAR: There is a regular rate and rhythm without any murmurs gallops or rubs. ABDOMEN: Soft and nontender with normal bowel sounds. SKIN: Skin is clear with no lesions or rashes and otherwise unremarkable. NEUROLOGIC: Patient is alert and oriented x3. Cranial nerves II through XII are grossly intact. Motor and sensory are also intact. Normal speech, volume and content. Symmetrical smile. MUSCULOSKELETAL: Normal extremities with adequate strength and full range of motion. LYMPHATICS: No significant lymphadenopathy is noted PSYCHIATRIC: Normal psychiatric evaluation. Limitations: no limitations Course Vital Signs 08/06/21 08/06/21 08/06/21 07:31 08:21 08:38 Temperature 98.5 F Pulse Rate 107 H 98 81 Respiratory 22 26 H Rate Blood Pressure 143/92 113/69 O2 Sat by Pulse 97 93 L Oximetry 08/06/21 08:53 Temperature Pulse Rate 89 Respiratory Rate Blood Pressure O2 Sat by Pulse Oximetry Medical Decision Making - Medical Decision Making EKG shows sinus rhythm with PACs at 90 bpm NV interval 252 QRS is 80 QT interval 344 QTC is 439. Patient's EKG shows no ST segment elevation or depression. Patient received multiple doses of albuterol and Atrovent in the emergency department. Patient received Solu-Medrol in route. I spoke with the hospitalist agreed to admit the patient and the patient I wrote admitting orders. - Lab Data Result diagrams: 08/06/21 08:10 08/06/21 08:10 Lab Results 08/06/21 08/06/21 08/06/21 Range/Units 08:10 08:10 08:10 WBC 11.9 H (3.8-10.6) k/uL RBC 4.53 (4.30-5.90) m/uL Hgb 14.0 (13.0-17.5) gm/dL Hct 43.7 (39.0-53.0) % MCV 96.5 (80.0-100.0) fL MCH 30.9 (25.0-35.0) pg MCHC 32.0 (31.0-37.0) g/dL RDW 12.7 (11.5-15.5) % Plt Count 275 (150-450) k/uL MPV 7.4 Neutrophils % 88 % Lymphocytes % 4 % Monocytes % 6 % Eosinophils % 0 % Basophils % 0 % Neutrophils # 10.5 H (1.3-7.7) k/uL Lymphocytes # 0.5 L (1.0-4.8) k/uL Monocytes # 0.8 (0-1.0) k/uL Eosinophils # 0.0 (0-0.7) k/uL Basophils # 0.0 (0-0.2) k/uL PT 10.8 (9.0-12.0) sec INR 1.0 (<1.2) APTT 25.0 (22.0-30.0) sec Sodium 139 (137-145) mmol/L Potassium 4.0 (3.5-5.1) mmol/L Chloride 97 L (98-107) mmol/L Carbon Dioxide 37 H (22-30) mmol/L Anion Gap 5 mmol/L BUN 14 (9-20) mg/dL Creatinine 0.60 L (0.66-1.25) mg/dL Est GFR (CKD-EPI)AfAm >90 (>60 ml/min/1.73 sqM) Est GFR (CKD-EPI)NonAf >90 (>60 ml/min/1.73 sqM) Glucose 132 H (74-99) mg/dL Plasma Lactic Acid [place] (0.7-2.0) mmol/L Calcium 9.7 (8.4-10.2) mg/dL Magnesium 1.7 (1.6-2.3) mg/dL Total Bilirubin 0.7 (0.2-1.3) mg/dL AST 26 (17-59) U/L ALT 13 (4-49) U/L Alkaline Phosphatase 27 L (38-126) U/L Troponin I (0.000-0.034) ng/mL Total Protein 7.0 (6.3-8.2) g/dL Albumin 3.8 (3.5-5.0) g/dL Coronavirus (PCR) (Not Detectd) 08/06/21 08/06/21 08/06/21 Range/Units 08:10 08:10 08:10 WBC (3.8-10.6) k/uL RBC (4.30-5.90) m/uL Hgb (13.0-17.5) gm/dL Hct (39.0-53.0) % MCV (80.0-100.0) fL MCH (25.0-35.0) pg MCHC (31.0-37.0) g/dL RDW (11.5-15.5) % Plt Count (150-450) k/uL MPV Neutrophils % % Lymphocytes % % Monocytes % % Eosinophils % % Basophils % % Neutrophils # (1.3-7.7) k/uL Lymphocytes # (1.0-4.8) k/uL Monocytes # (0-1.0) k/uL Eosinophils # (0-0.7) k/uL Basophils # (0-0.2) k/uL PT (9.0-12.0) sec INR (<1.2) APTT (22.0-30.0) sec Sodium (137-145) mmol/L Potassium (3.5-5.1) mmol/L Chloride (98-107) mmol/L Carbon Dioxide (22-30) mmol/L Anion Gap mmol/L BUN (9-20) mg/dL Creatinine (0.66-1.25) mg/dL Est GFR (CKD-EPI)AfAm (>60 ml/min/1.73 sqM) Est GFR (CKD-EPI)NonAf (>60 ml/min/1.73 sqM) Glucose (74-99) mg/dL Plasma Lactic Acid [place] 1.2 (0.7-2.0) mmol/L Calcium (8.4-10.2) mg/dL Magnesium (1.6-2.3) mg/dL Total Bilirubin (0.2-1.3) mg/dL AST (17-59) U/L ALT (4-49) U/L Alkaline Phosphatase (38-126) U/L Troponin I <0.012 (0.000-0.034) ng/mL Total Protein (6.3-8.2) g/dL Albumin (3.5-5.0) g/dL Coronavirus (PCR) Not Detected (Not Detectd) Disposition Clinical Impression: COPD with exacerbation Disposition: ADMITTED IP TO THIS HOSP Referrals: Charlene Mcwilliams MD [Primary Care Provider] - 1-2 days Time of Disposition: 09:29
[2021-08-06 08:26] LABS: Basophils % (A) 0 %; Eosinophils % (A) 0 %; HCT 43.7 % (39.0-53.0); Lymphocytes # (A) 0.5 k/uL (1.0-4.8); Lymphocytes % (A) 4 %; MCH 30.9 pg (25.0-35.0); MCV 96.5 fL (80.0-100.0); Mean Platelet Volume 7.4; Monocytes # (A) 0.8 k/uL (0-1.0); Monocytes % (A) 6 %; Neutrophils # (A) 10.5 k/uL (1.3-7.7); Neutrophils % (A) 88 %; Platelet Count 275 k/uL (150-450); RBC 4.53 m/uL (4.30-5.90); RDW 12.7 % (11.5-15.5); WBC 11.9 k/uL (3.8-10.6)
--- NOTE | 2021-08-06 08:36 | XR ---
EXAMINATION TYPE: XR chest 2V DATE OF EXAM: 08/06/2021 COMPARISON: 05/17/2020 HISTORY: Shortness of breath TECHNIQUE: Frontal and lateral views of the chest are obtained. FINDINGS: There is hyperinflation of lungs and flattening the diaphragms consistent with COPD. There are prominent interstitial opacities which are seen previously and are likely chronic. The heart size is normal. The pulmonary vasculature is not congested. The osseous structures are inta ct. IMPRESSION: COPD with no definite evidence of acute cardiopulmonary disease.
[2021-08-06 08:39] LABS: ALT 13 U/L (4-49); AST 26 U/L (17-59); African American GFR (CKD) >90 (>60 ml/min/1.73 sqM); Albumin 3.8 g/dL (3.5-5.0); Alkaline Phosphatase 27 U/L (38-126); Anion Gap 5 mmol/L; Blood Urea Nitrogen 14 mg/dL (9-20); Calcium 9.7 mg/dL (8.4-10.2); Carbon Dioxide 37 mmol/L (22-30); Chloride 97 mmol/L (98-107); Glucose 132 mg/dL (74-99); Magnesium 1.7 mg/dL (1.6-2.3); Non-African American GFR(CKD) >90 (>60 ml/min/1.73 sqM); Sodium 139 mmol/L (137-145); Total Bilirubin 0.7 mg/dL (0.2-1.3)
[2021-08-06 08:44] LABS: Prothrombin Time 10.8 sec (9.0-12.0)
[2021-08-06] MEDS ORDERED: IPRATROPIUM-ALBUTEROL 3 ML NEB INHALATION PRN (09:29)
[2021-08-06] MEDS: methylPREDNISolone SOD SUCCI 125 MG/2 ML VIAL IV SCH ×3 (12:40→23:14)
[2021-08-06] MEDS: HEPARIN SODIUM,PORCINE/PF 5,000 UNIT/0.5 ML SYRINGE SQ SCH ×2 (16:30→23:14)
--- NOTE | 2021-08-06 17:12 | P.CNPUL ---
History of Present Illness Consult date: 08/06/21 Reason for consult: dyspnea, COPD History of present illness: 70-year-old male patient was Hospital as for an acute COPD exacerbation. The patient is known to have COPD. The patient is a chronic smoker up to 3 packs of cigarettes a day and the patient has been trying to quit smoking over the years. He has had previous hospitalization to our hospital for acute COPD exacerbation and CO2 narcosis. His previous catheterization was in May 2020 and at time the patient was supported with a BiPAP for acute hypoxic and hypercapnic respiratory failure. He is known to have history of melanoma and COPD. The patient comes into the hospital because of worsening shortness of breath and he was Hospital as for an acute COPD exacerbation. The patient has taken his COVID 19 vaccination. His chest x-ray is consistent with hyperinflation. No airspace disease. As far as his blood work, the patient had essentially normal blood work. Serum bicarb was elevated consistent with metabolic alkalosis and incision with chronic hypercapnic respiratory failure. Serum bicarb is at 37. White cell count 11.9, glucose is 132, LFTs are normal, the patient had a lactic acid of 1.2, COVID 19 testing is been negative and troponins been also negative. He was started on a combination of bronchodilators and steroids. He is currently on oxygen at 3 L per minute. Review of Systems Constitutional: Awake and alert no signs of any CO2 narcosis this point in time. Eyes: denies as per HPI, denies blurred vision, denies bulging eye, denies decreased vision, denies diplopia, denies discharge, denies dry eye, denies irritation, denies itching, denies pain, denies photophobia, denies loss of peripheral vision, denies loss of vision, denies tunnel vision/blind spots Ears: deny: decreased hearing, ear discharge, earache, tinnitus Ears, nose, mouth and throat: Reports as per HPI Breasts: absent: as per HPI, gynecomastia Cardiovascular: Reports decreased exercise tolerance, Reports dyspnea on exertion Respiratory: Reports dyspnea, Reports wheezing Gastrointestinal: Reports as per HPI Genitourinary: Reports as per HPI, Reports hematuria Musculoskeletal: absent: ankle pain, ankle stiffness, ankle swelling Neurological: Reports as per HPI Psychiatric: Reports as per HPI Endocrine: Reports as per HPI, Reports fatigue Hematologic/Lymphatic: Reports as per HPI Allergic/Immunologic: Reports as per HPI 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), COPD, smoker History of Any Multi-Drug Resistant Organisms: None Reported Past Surgical History: Tonsillectomy Additional Past Surgical History / Comment(s): cataracts Past Anesthesia/Blood Transfusion Reactions: No Reported Reaction Past Psychological History: No Psychological Hx Reported Smoking Status: Current every day smoker Past Alcohol Use History: None Reported Past Drug Use History: None Reported Medications and Allergies Home Medications Medication Instructions Recorded Confirmed Type Ipratropium-Albuterol Nebulize 3 ml INHALATION RT-QID PRN 05/15/20 08/06/21 History [Duoneb 0.5 mg-3 mg/3 ml Soln] Advair (Unknown Strength) 1 dose INHALATION DIRECTED 08/06/21 08/06/21 History Aspirin EC [Ecotrin] 650 mg PO DAILY 08/06/21 08/06/21 History guaiFENesin-DM 100-10MG/5ML 10 - 20 ml PO Q4H PRN MDD 60 ML 08/06/21 08/06/21 History [Robitussin DM] guaiFENesin-DM 600/30MG [Mucinex 1 tab PO Q12HR PRN 08/06/21 08/06/21 History Dm] Allergies Allergy/AdvReac Type Severity Reaction Status Date / Time No Known Allergies Allergy Verified 08/06/21 07:37 Physical Exam Vitals: Vital Signs Temp Pulse Pulse Resp BP BP Pulse Ox 08/06/21 15:43 94 08/06/21 15:30 92 08/06/21 14:49 97.7 F 79 16 130/61 95 08/06/21 14:39 98.6 F 77 18 99/72 99 08/06/21 12:37 77 18 93/62 99 08/06/21 09:39 94 24 130/78 96 08/06/21 08:53 89 08/06/21 08:38 81 08/06/21 08:21 98 26 H 113/69 93 L 08/06/21 07:31 98.5 F 107 H 22 143/92 97 Intake and Output 08/06/21 08/06/21 08/06/21 06:59 14:59 22:59 Other: Weight 61.235 kg Gen. appearance thin and frail nonacute distress for distress currently on 3 L nasal cannula. Not using excessive muscle breathing. BMI 20.8 Head exam was generally normal. There was no scleral icterus or corneal arcus. Mucous membranes were moist. Neck was supple and without jugular venous distension, thyromegaly, or carotid bruits. Carotids were easily palpable bilaterally. There was no adenopathy. Lungs sounds are diminished bilaterally and the patient has marked diminished breath sounds on the left is along with pronation of the exhalation phase of breathing and the patient has exhalation wheezing. Cardiac exam revealed the PMI to be normally situated and sized. The rhythm was regular and no extrasystoles were noted during several minutes of auscultation. The first and second heart sounds were normal and physiologic splitting of the second heart sound was noted. There were no murmurs, rubs, clicks, or gallops. Abdominal exam revealed normal bowel sounds. The abdomen was soft, non-tender, and without masses, organomegaly, or appreciable enlargement of the abdominal aorta. Examination of the extremities revealed easily palpable radial, femoral and pedal pulses. There was no cyanosis, clubbing or edema. Examination of the skin revealed no evidence of significant rashes, suspicious appearing nevi or other concerning lesions. Neurologically arousable and the patient is following commands and answering appropriately. Results - Laboratory Findings CBC and BMP: 08/06/21 08:10 08/06/21 08:10 PT/INR, D-dimer PT 10.8 sec (9.0-12.0) 08/06/21 08:10 INR 1.0 (<1.2) 08/06/21 08:10 Abnormal lab findings: Abnormal Labs 08/06/21 08/06/21 08:10 08:10 WBC 11.9 H Neutrophils # 10.5 H Lymphocytes # 0.5 L Chloride 97 L Carbon Dioxide 37 H Creatinine 0.60 L Glucose 132 H Alkaline Phosphatase 27 L - Diagnostic Findings Chest x-ray: image reviewed Assessment and Plan Plan: 1 acute COPD exacerbation, chest x-ray history of any acute pulmonary infiltrates. Clinically testing is been negative and the patient has been vaccinated for COVID 19. No cervical leukocytosis. 2 advanced COPD with chronic hypoxic and hypercapnic the respiratory failure. His hospitalization was in May 2024 and acute on top of chronic hypoxic and hypercapnic respiratory failure. 3 chronic dyspnea secondary to above 4 chronic hypoxic respiratory failure 5 cachexia with a BMI of 18 6 previous history of melanoma resected 7 previous history of smoking Plan Supplement the patient with oxygen to maintain saturation above 90%. Put the patient on DuoNeb nebulized treatments around the clock and Pulmicort Respules twice a day Put the patient IV Solu-Medrol 60 mg every 6 hours Heparin subcu for the prophylaxis Check pro calcitonin level Chest x-ray is free of any acute pulmonary infiltrates The patient needs to be optimizing his COPD on outpatient basis. Recommend Trelegy Ellipta on outpatient basis as maintenance in combination to DuoNeb nebulized [id number]. Smoking cessation counseling We'll continue to follow.
[2021-08-06] MEDS: FAMOTIDINE 20 MG TAB PO SCH (20:34)
[2021-08-06] MEDS: IPRATROPIUM-ALBUTEROL 3 ML NEB INHALATION SCH ×2 (21:52→21:53)
[2021-08-06] MEDS: BUDESONIDE 0.5 MG/2 ML NEBU INHALATION SCH (21:52)
--- NOTE | 2021-08-06 22:49 | P.HPIM ---
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 Patient was also having cough but unable to bring up any sputum. Denied any complaints of chest pain. No nausea vomiting abdominal pain or diarrhea. Denied any dizziness or lightheadedness. No leg swelling. Patient did have a COVID-19 vaccine. Admission chest x-ray showed COPD with no definite evidence of acute pulmonary disease. Blood pressure 143/92 pulse is 107 respiration 20-26 and pulse ox 97% on 6 L oxygen via nasal cannula on admission. Laboratory data showed WBC 11.9 hemoglobin 14.0 neutrophils 10.5 and lymphocytes 0.5 sodium 139 potassium 4.0 chloride 97 bicarb is 37 BUN 14 and creatinine 0.6 alk phos 27 AST 26 ALT 39 troponin x1 - and coronavirus PCR not detected. Review of Systems Constitutional: Patient denies any fever or chills . No generalized weakness or weight loss. Abdomen: Patient denied nausea vomiting and diarrhea and abdominal pain. Cardiovascular: Patient denies any chest pain or short of breath no palpita tions. Respiratory: Patient does have cough without any sputum production. And shortness of breath Neurologic: Patient denied any numbness or tingling headache. Musculoskeletal: Patient denies any complaints of joint swelling or deformity. Skin: Negative Psychiatric: Negative Endocrine: No heat or cold intolerance. No recent weight gain. Genitourinary: No dysuria or hematuria. All other 14 point ROS negative except the above 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), COPD, smoker History of Any Multi-Drug Resistant Organisms: None Reported Past Surgical History: Tonsillectomy Additional Past Surgical History / Comment(s): cataracts Past Anesthesia/Blood Transfusion Reactions: No Reported Reaction Past Psychological History: No Psychological Hx Reported Smoking Status: Current every day smoker, Former smoker Past Alcohol Use History: None Reported Past Drug Use History: None Reported Medications and Allergies Home Medications Medication Instructions Recorded Confirmed Type Ipratropium-Albuterol Nebulize 3 ml INHALATION RT-QID PRN 05/15/20 08/06/21 History [Duoneb 0.5 mg-3 mg/3 ml Soln] Advair (Unknown Strength) 1 dose INHALATION DIRECTED 08/06/21 08/06/21 History Aspirin EC [Ecotrin] 650 mg PO DAILY 08/06/21 08/06/21 History guaiFENesin-DM 100-10MG/5ML 10 - 20 ml PO Q4H PRN MDD 60 ML 08/06/21 08/06/21 History [Robitussin DM] guaiFENesin-DM 600/30MG [Mucinex 1 tab PO Q12HR PRN 08/06/21 08/06/21 History Dm] Allergies Allergy/AdvReac Type Severity Reaction Status Date / Time No Known Allergies Allergy Verified 08/06/21 07:37 Physical Exam Vitals: Vital Signs Temp Pulse Resp BP Pulse Ox 08/06/21 12:37 77 18 93/62 99 08/06/21 09:39 94 24 130/78 96 08/06/21 08:53 89 08/06/21 08:38 81 08/06/21 08:21 98 26 H 113/69 93 L 08/06/21 07:31 98.5 F 107 H 22 143/92 97 Intake and Output 08/05/21 08/06/21 08/06/21 22:59 06:59 14:59 Other: Weight 61.235 kg PHYSICAL EXAMINATION: Patient is lying in the bed comfortably, no acute distress, awake alert and oriented.Cachectic.. HEENT: Normocephalic. Neck is supple. Pupils reactive. Nostrils clear. Oral cavity is moist. Neck reveals no JVD, carotid bruits, or thyromegaly. CHEST EXAMINATION: Trachea is central. Symmetrical expansion. Bilateral diminished air entry and minimal wheezing. Nonlabored breathing.. CARDIAC: Normal S1, S2 with no gallops. No murmurs ABDOMEN: Soft. Bowel sounds normal. No organomegaly. No abdominal bruits. Extremities: reveal no edema. No clubbing or cyanosis Neurologically awake, alert, oriented x3 with well-coordinated movements. No focal deficits noted Skin: No rash or skin lesions. Psychiatric: Cooperative. Nonsuicidal Musculoskeletal: No joint swelling or deformity. Normal range of motion. Results CBC & Chem 7: 08/06/21 08:10 12/04/21 08:10 Labs: Abnormal Lab Results - Last 24 Hours (Table) 08/06/21 08/06/21 Range/Units 08:10 08:10 WBC 11.9 H (3.8-10.6) k/uL Neutrophils # 10.5 H (1.3-7.7) k/uL Lymphocytes # 0.5 L (1.0-4.8) k/uL Chloride 97 L (98-107) mmol/L Carbon Dioxide 37 H (22-30) mmol/L Creatinine 0.60 L (0.66-1.25) mg/dL Glucose 132 H (74-99) mg/dL Alkaline Phosphatase 27 L (38-126) U/L Thrombosis Risk Factor Assmnt - DVT/VTE Prophylaxis DVT/VTE Prophylaxis: Pharmacologic Prophylaxis ordered Assessment and Plan Assessment: Shortness of breath secondary to acute COPD exacerbation Advanced COPD on home oxygen at 3 L via nasal cannula. Chronic hypoxic and hypercapnic respiratory failure History of melanoma resected Ongoing nicotine addiction Moderate to severe malnutrition BMI 18.3 Plan: Patient will be continued on duo nebs and Solu-Medrol 60 mg every 6 hourly. Continue with oxygen supplementation and titrate down to 3 L. Continue with GI and DVT prophylaxis. Pulmonary was consulted. Continue to follow closely.
[2021-08-07] MEDS: methylPREDNISolone SOD SUCCI 125 MG/2 ML VIAL IV SCH ×4 (05:13→23:46)
[2021-08-07 06:17] LABS: Basophils % (A) 0 %; Eosinophils % (A) 0 %; HCT 40.2 % (39.0-53.0); HGB 12.8 gm/dL (13.0-17.5); Lymphocytes # (A) 0.3 k/uL (1.0-4.8); Lymphocytes % (A) 3 %; MCH 31.2 pg (25.0-35.0); MCHC 31.9 g/dL (31.0-37.0); MCV 97.9 fL (80.0-100.0); Mean Platelet Volume 7.5; Monocytes # (A) 0.5 k/uL (0-1.0); Monocytes % (A) 4 %; Neutrophils # (A) 11.8 k/uL (1.3-7.7); Neutrophils % (A) 93 %; Platelet Count 272 k/uL (150-450); RBC 4.11 m/uL (4.30-5.90); RDW 12.7 % (11.5-15.5); WBC 12.7 k/uL (3.8-10.6)
[2021-08-07 06:27] LABS: African American GFR (CKD) >90 (>60 ml/min/1.73 sqM); Anion Gap 4 mmol/L; Blood Urea Nitrogen 20 mg/dL (9-20); Calcium 9.1 mg/dL (8.4-10.2); Carbon Dioxide 36 mmol/L (22-30); Chloride 99 mmol/L (98-107); Glucose 140 mg/dL (74-99); Non-African American GFR(CKD) >90 (>60 ml/min/1.73 sqM); Potassium 4.6 mmol/L (3.5-5.1); Sodium 139 mmol/L (137-145)
[2021-08-07] MEDS: IPRATROPIUM-ALBUTEROL 3 ML NEB INHALATION SCH ×4 (08:25→19:29)
[2021-08-07] MEDS: BUDESONIDE 0.5 MG/2 ML NEBU INHALATION SCH ×2 (08:25→19:29)
[2021-08-07] MEDS: FAMOTIDINE 20 MG TAB PO SCH ×2 (09:12→20:14)
[2021-08-07] MEDS: HEPARIN SODIUM,PORCINE/PF 5,000 UNIT/0.5 ML SYRINGE SQ SCH ×3 (09:12→23:46)
--- NOTE | 2021-08-07 14:26 | P.PN ---
Subjective Progress Note Date: 08/07/21 08/07/2021, patient is being seen for a follow-up. Doing well. No significant shortness of breath. No chest pain. Improving and his last bronchus spastic and wheezy compared to yesterday. He was seen in consultation yesterday. He was COVID 19 testing negative and the patient is vaccinated. The patient is on bronchodilators and the patient is also on steroids with IV Solu Medrol 60 mg every 6 hours. His oxygen dependent at 3 L per minute nasal cannula. The blood culture is negative 2. Objective - Vital Signs Vital signs: Vital Signs Temp 99.1 F 08/07/21 08:00 Pulse 78 08/07/21 12: Resp 18 08/07/21 08:00 BP 102/64 08/07/21 08:00 Pulse Ox 98 08/07/21 08:00 Intake & Output 08/06/21 08/07/21 08/07/21 18:59 06:59 18:59 Intake Total 290 Output Total 275 400 Balance 15 -400 Weight 61.235 kg Intake: Oral 290 Output: Urine 275 400 Other: Voiding Method Urinal - Exam Gen. appearance thin and frail nonacute distress for distress currently on 3 L nasal cannula. Not using excessive muscle breathing. BMI 20.8 Head exam was generally normal. There was no scleral icterus or corneal arcus. Mucous membranes were moist. Neck was supple and without jugular venous distension, thyromegaly, or carotid bruits. Carotids were easily palpable bilaterally. There was no adenopathy. Lungs sounds are diminished bilaterally and the patient has marked diminished breath sounds on the left is along with pronation of the exhalation phase of breathing and the patient has exhalation wheezing. Cardiac exam revealed the PMI to be normally situated and sized. The rhythm was regular and no extrasystoles were noted during several minutes of auscultation. The first and second heart sounds were normal and physiologic splitting of the second heart sound was noted. There were no murmurs, rubs, clicks, or gallops. Abdominal exam revealed normal bowel sounds. The abdomen was soft, non-tender, and without masses, organomegaly, or appreciable enlargement of the abdominal aorta. Examination of the extremities revealed easily palpable radial, femoral and pedal pulses. There was no cyanosis, clubbing or edema. Examination of the skin revealed no evidence of significant rashes, suspicious appearing nevi or other concerning lesions. Neurologically arousable and the patient is following commands and answering appropriately. - Labs CBC & Chem 7: 08/07/21 05:43 12 05:43 Labs: Abnormal Lab Results - Last 24 Hours (Table) 08/07/21 08/07/21 Range/Units 05:43 05:43 WBC 12.7 H (3.8-10.6) k/uL RBC 4.11 L (4.30-5.90) m/uL Hgb 12.8 L (13.0-17.5) gm/dL Neutrophils # 11.8 H (1.3-7.7) k/uL Lymphocytes # 0.3 L (1.0-4.8) k/uL Carbon Dioxide 36 H (22-30) mmol/L Glucose 140 H (74-99) mg/dL Microbiology - Last 24 Hours (Table) 08/06/21 08:10 Blood Culture - Preliminary Blood No Growth after 24 hours 08/06/21 08:10 Blood Culture - Preliminary Blood No Growth after 24 hours Assessment and Plan Plan: 1 acute COPD exacerbation, chest x-ray history of any acute pulmonary infiltrates. Clinically testing is been negative and the patient has been vaccinated for COVID 19. No cervical leukocytosis. 2 advanced COPD with chronic hypoxic and hypercapnic the respiratory failure. His hospitalization was in May 2024 and acute on top of chronic hypoxic and hypercapnic respiratory failure. 3 chronic dyspnea secondary to above 4 chronic hypoxic respiratory failure 5 cachexia with a BMI of 18 6 previous history of melanoma resected 7 previous history of smoking Plan Clinically improving without any new issues for now. Supplement the patient with oxygen to maintain saturation above 90%. Put the patient on DuoNeb nebulized treatments around the clock and Pulmicort Respules twice a day Put the patient IV Solu-Medrol 60 mg every 6 hours Heparin subcu for the prophylaxis Check pro calcitonin level Chest x-ray is free of any acute pulmonary infiltrates and appropriate, pro calcitonin level is at 0.03 The patient needs to be optimizing his COPD on outpatient basis. Recommend Trelegy Ellipta on outpatient basis as maintenance in combination to DuoNeb nebulized [id number]. Smoking cessation counseling We'll continue to follow. Possible discharge in the next 24 hours.
[2021-08-07] MEDS: FORMOTEROL FUMARATE 20 MCG/2 ML NEBU INHALATION SCH (19:30)
--- NOTE | 2021-08-07 21:52 | P.PN ---
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 Patient was also having cough but unable to bring up any sputum. Denied any complaints of chest pain. No nausea vomiting abdominal pain or diarrhea. Denied any dizziness or lightheadedness. No leg swelling. Patient did have a COVID-19 vaccine. Admission chest x-ray showed COPD with no definite evidence of acute pulmonary disease. Blood pressure 143/92 pulse is 107 respiration 20-26 and pulse ox 97% on 6 L oxygen via nasal cannula on admission. Laboratory data showed WBC 11.9 hemoglobin 14.0 neutrophils 10.5 and lymphocytes 0.5 sodium 139 potassium 4.0 chloride 97 bicarb is 37 BUN 14 and creatinine 0.6 alk phos 27 AST 26 ALT 39 troponin x1 - and coronavirus PCR not detected. 08/07/2021 Patient is currently sitting in the bed. Shortness of breath is better still having exertional dyspnea with walking to the bathroom. Expiratory wheezing on exam. Patient has been afebrile. Currently oxygen requirement trending down to 3 L which is his home regimen. Patient is being continued IV steroids and bronchodilators. Laboratory showed WBC 12.4 hemoglobin 12.8 and platelets 272 Bicarb is 36 BUN 20 and creatinine 0.66 Procalcitonin level is 0.03. Pulmonary is on board. Current medications reviewed. Objective - Vital Signs Vital signs: Vital Signs Temp 98.3 F 08/07/21 18:57 Pulse 96 08/07/21 19:55 Resp 16 08/07/21 18:57 BP 100/50 08/07/21 18:57 Pulse Ox 97 08/07/21 18:57 Intake & Output 08/07/21 08/07/21 08/08/21 06:59 18:59 06:59 Intake Total 290 Output Total 275 400 Balance 15 -400 Intake: Oral 290 Output: Urine 275 400 Other: Voiding Method Urinal - Exam PHYSICAL EXAMINATION: Patient is lying in the bed comfortably, no acute distress, awake alert and oriented.Cachectic.. HEENT: Normocephalic. Neck is supple. Pupils reactive. Nostrils clear. Oral cavity is moist. Neck reveals no JVD, carotid bruits, or thyromegaly. CHEST EXAMINATION: Trachea is central. Symmetrical expansion. Improved bilateral air entry. Expiratory wheezing. Scattered rhonchi. Nonlabored breathing.. CARDIAC: Normal S1, S2 with no gallops. No murmurs ABDOMEN: Soft. Bowel sounds normal. No organomegaly. No abdominal bruits. Extremities: reveal no edema. No clubbing or cyanosis Neurologically awake, alert, oriented x3 with well-coordinated movements. No focal deficits noted Skin: No rash or skin lesions. Psychiatric: Cooperative. Nonsuicidal Musculoskeletal: No joint swelling or deformity. Normal range of motion. - Labs CBC & Chem 7: 08/07/21 05:43 08/07/21 05:43 Labs: Abnormal Lab Results - Last 24 Hours (Table) 08/07/21 08/07/21 Range/Units 05:43 05:43 WBC 12.7 H (3.8-10.6) k/uL RBC 4.11 L (4.30-5.90) m/uL Hgb 12.8 L (13.0-17.5) gm/dL Neutrophils # 11.8 H (1.3-7.7) k/uL Lymphocytes # 0.3 L (1.0-4.8) k/uL Carbon Dioxide 36 H (22-30) mmol/L Glucose 140 H (74-99) mg/dL Microbiology - Last 24 Hours (Table) 08/06/21 08:10 Blood Culture - Preliminary Blood No Growth after 24 hours 08/06/21 08:10 Blood Culture - Preliminary Blood No Growth after 24 hours Assessment and Plan Assessment: Shortness of breath secondary to acute COPD exacerbation Advanced COPD on home oxygen at 3 L via nasal cannula. Chronic hypoxic and hypercapnic respiratory failure History of melanoma resected Ongoing nicotine addiction Moderate to severe malnutrition BMI 18.3 Plan: Patient will be continued on duo nebs and Solu-Medrol 60 mg every 6 hourly. Continue with oxygen supplementation and titrate down to 3 L. Continue with GI and DVT prophylaxis. Pulmonary is follwoing. Continue to follow closely.
[2021-08-08] MEDS: methylPREDNISolone SOD SUCCI 125 MG/2 ML VIAL IV SCH (05:42)
[2021-08-08] MEDS ORDERED: ACETAMINOPHEN TAB 325 MG TAB PO PRN (05:44)
[2021-08-08] MEDS: BUDESONIDE 0.5 MG/2 ML NEBU INHALATION SCH (08:08)
[2021-08-08] MEDS: IPRATROPIUM-ALBUTEROL 3 ML NEB INHALATION SCH ×3 (08:08→16:13)
[2021-08-08] MEDS: FORMOTEROL FUMARATE 20 MCG/2 ML NEBU INHALATION SCH (08:08)
[2021-08-08 08:28] LABS: Basophils % (A) 0 %; Eosinophils % (A) 0 %; HCT 39.5 % (39.0-53.0); HGB 13.1 gm/dL (13.0-17.5); Lymphocytes # (A) 0.2 k/uL (1.0-4.8); Lymphocytes % (A) 2 %; MCH 31.9 pg (25.0-35.0); MCHC 33.2 g/dL (31.0-37.0); MCV 96.1 fL (80.0-100.0); Mean Platelet Volume 7.7; Monocytes # (A) 0.4 k/uL (0-1.0); Monocytes % (A) 3 %; Neutrophils # (A) 12.4 k/uL (1.3-7.7); Neutrophils % (A) 95 %; Platelet Count 280 k/uL (150-450); RBC 4.12 m/uL (4.30-5.90); RDW 12.8 % (11.5-15.5); WBC 13.1 k/uL (3.8-10.6)
[2021-08-08] MEDS: HEPARIN SODIUM,PORCINE/PF 5,000 UNIT/0.5 ML SYRINGE SQ SCH (08:33)
[2021-08-08] MEDS: FAMOTIDINE 20 MG TAB PO SCH (08:33)
[2021-08-08 08:49] LABS: African American GFR (CKD) >90 (>60 ml/min/1.73 sqM); Anion Gap 4 mmol/L; Blood Urea Nitrogen 27 mg/dL (9-20); Calcium 9.2 mg/dL (8.4-10.2); Carbon Dioxide 38 mmol/L (22-30); Chloride 96 mmol/L (98-107); Glucose 210 mg/dL (74-99); Non-African American GFR(CKD) >90 (>60 ml/min/1.73 sqM); Potassium 4.3 mmol/L (3.5-5.1); Sodium 138 mmol/L (137-145)
[2021-08-08] MEDS ORDERED: DOXYCYCLINE 100 MG CAP PO SCH (09:00)
[2021-08-08] MEDS ORDERED: predniSONE 20 MG TAB PO SCH (11:00)
--- NOTE | 2021-08-08 11:16 | P.PN ---
Subjective Progress Note Date: 08/08/21 Principal diagnosis: Acute on chronic hypoxic respiratory failure and hypercapnic respiratory failure secondary to acute exacerbation of COPD. 08/07/2021, patient is being seen for a follow-up. Doing well. No significant shortness of breath. No chest pain. Improving and his last bronchus spastic and wheezy compared to yesterday. He was seen in consultation yesterday. He was COVID 19 testing negative and the patient is vaccinated. The patient is on bronchodilators and the patient is also on steroids with IV Solu Medrol 60 mg every 6 hours. His oxygen dependent at 3 L per minute nasal cannula. The blood culture is negative 2. Reevaluated today on 08/08/2021, patient is doing better, he was seen by Dr. Mcwilliams yesterday, and he is on full treatment for acute exacerbation of COPD. Patient is breathing a lot easier today, denies any cough, no wheezing, he does have shortness of breath which is chronic. On physical examination he sounded fairly clear, diminished breath sounds at the bases no rhonchi no wheezes, hence I'm recommending that we discharge the patient home today on bronchodilators, prednisone burst and taper over the next 2 weeks, home oxygen, and the patient is to resume back his medications including Advair and his updrafts. Patient is to follow-up with Dr. Mcwilliams in one to 2 weeks postdischarge. Objective - Vital Signs Vital signs: Vital Signs Temp 98.1 F 08/08/21 01:37 Pulse 92 08/08/21 08:29 Resp 18 08/08/21 01:37 BP 102/52 08/08/21 01:37 Pulse Ox 95 08/08/21 01:37 Intake & Output 08/07/21 08/08/21 08/08/21 18:59 06:59 18:59 Intake Total 240 Output Total 400 Balance -400 240 Intake: Oral 240 Output: Urine 400 Other: Voiding Method Urinal Urinal # Voids 1 - Exam Physical Exam revealed a 70-year-old white male in no distress. Head: Atraumatic, normocephalic. HEENT:[Neck is supple.] [No neck masses.] [No thyromegaly.] [No JVD.] Chest: [Symmetrical chest expansion, diminished breath sound bilaterally no crackles or rhonchi or wheezes. Cardiac Exam: [Normal S1 and S2, no S3 gallop, no murmur.] Abdomen: [Soft, nontender, no megaly, no rebound, no guarding, normal bowel sounds.] Extremities: [No clubbing, no edema, no cyanosis.] Neurological Exam: [No focal neurologic deficit. Alert oriented 3. Psychiatric: Normal mood affect and normal mental status examination. Skin: No rashes.] - Labs CBC & Chem 7: 08/08/21 08:04 08/08/21 08:04 Labs: Abnormal Lab Results - Last 24 Hours (Table) 08/08/21 08/08/21 Range/Units 08:04 08:04 WBC 13.1 H (3.8-10.6) k/uL RBC 4.12 L (4.30-5.90) m/uL Neutrophils # 12.4 H (1.3-7.7) k/uL Lymphocytes # 0.2 L (1.0-4.8) k/uL Chloride 96 L (98-107) mmol/L Carbon Dioxide 38 H (22-30) mmol/L BUN 27 H (9-20) mg/dL Glucose 210 H (74-99) mg/dL Microbiology - Last 24 Hours (Table) 08/06/21 08:10 Blood Culture - Preliminary Blood No Growth after 24 hours 08/06/21 08:10 Blood Culture - Preliminary Blood No Growth after 24 hours Assessment and Plan Assessment: Impression: Acute on chronic hypoxic and hypercapnic respiratory failure Acute exacerbation of COPD Chronic dyspnea secondary to COPD Ex-smoker Severe protein calorie malnutrition, BMI of 18 Recommendation: Continue present supportive care measures Continue bronchodilators Continue oxygen Change patient to prednisone and taper over the next 2 weeks Doxycycline 100 twice a day for 10 days We'll clear the patient to be discharged home today and follow-up on outpatient basis with Dr. Mcwilliams. Patient is either to go back on his Advair or would recommend DuoNeb in combination with trelegy Time with Patient: Less than 30
[2021-08-08 15:21] VITALS: BMI 18.3
[2021-08-08 18:01] VITALS: BP 125/88; PULSE 99; RESP 19; TEMP 97.9
== END 2021-08-08 15:00 | disposition home or self-care (01) | DRG 190 ==
LOC: EC 06:55 → 4SSUR 09:29 → 1SOBS 14:02
PROVIDERS: ADMIT Internal Medicine; ATTEND Internal Medicine
DX: J44.1 Chronic obstructive pulmonary disease with (acute) exacerbation (principal); J96.21 Acute and chronic respiratory failure with hypoxia; J96.22 Acute and chronic respiratory failure with hypercapnia; E43 Unspecified severe protein-calorie malnutrition; E87.3 Alkalosis; Z68.1 Body mass index [BMI] 19.9 or less, adult; R64 Cachexia; Z20.822 Contact with and (suspected) exposure to COVID-19; F17.210 Nicotine dependence, cigarettes, uncomplicated; Z79.82 Long term (current) use of aspirin; Z85.820 Personal history of malignant melanoma of skin; Z99.81 Dependence on supplemental oxygen; Z98.49 Cataract extraction status, unspecified eye; Z90.89 Acquired absence of other organs
CPT/HCPCS: 36415; 71046; 80048; 80053; 83605; 83735; 84145; 84484; 85025; 85610; 85730; 87040; 87635; 93005; 94640; 94760; 96361; 96374; 99285